=== PATIENT | female | born 1945 | race Caucasian/White ===

== ENCOUNTER 2022-08-16 22:37 | Inpatient (IN) | payer MEDICARE, SELFPAY ==
--- NOTE | ~2022-08-16 | XR_ITS ---
EXAMINATION: XR KNEE, LEFT CLINICAL INFORMATION: Left hip and knee pain COMPARISON: None available. TECHNIQUE: Two views of the left knee. FINDINGS: Alignment of the knee joint maintained. Small tricompartmental marginal osteophytes. No significant joint effusion. Comminuted proximal left femoral fracture as described dedicated report for the left hip. XR/XR knee LT 2V IMPRESSION: Intact left knee. Comminuted proximal left femoral fracture as described dedicated report for the left hip.
--- NOTE | ~2022-08-16 | FL_ITS ---
EXAMINATION: XR FLUOROSCOPY WITH IMAGES CLINICAL INFORMATION: A femoral IM nailing left. COMPARISON: None available. TECHNIQUE: Fluoroscopy Supervised By: Dr. Nikita Grant. Fluoroscopy Time: 1.0 minutes. Cumulative Dose: 31.6 mGy. DAP: 0.531 mGym2. Images: 5. FINDINGS: 5 images show a left intramedullary nail across the subtrochanteric femoral neck fracture. No periprosthetic fracture. FL/FL guidance in OR IMPRESSION: Technical assistance and equipment provided by the Department of Radiology during procedural fluoroscopy, as above. Please see procedure report for further details.
--- NOTE | ~2022-08-16 | XR_ITS ---
EXAMINATION: XR HIP, LEFT CLINICAL INFORMATION: Left hip pain. Evaluate for fracture. COMPARISON: None available. TECHNIQUE: Single AP view pelvis Two views of the left hip. FINDINGS: Acute comminuted subtrochanteric/reverse obliquity intertrochanteric spiral fracture of the proximal femoral diametaphysis, with apex medial and anterior angulation. There is a mildly displaced medial butterfly fragment distally. Pelvic ring intact. Severe bilateral hip arthrosis, worse on the left with near complete obliteration of the joint space, subchondral sclerosis and marginal osteophytes. XR/XR hip LT w PEL1V IMPRESSION: * Acute comminuted subtrochanteric/reverse obliquity intertrochanteric fracture of the proximal left femoral diametaphysis as described. * Severe left and moderate right hip arthrosis.
--- NOTE | ~2022-08-16 | XR_ITS ---
EXAMINATION: XR CHEST CLINICAL INFORMATION: Chest pain COMPARISON: None available. TECHNIQUE: Frontal view of the chest was obtained. FINDINGS: Normal symmetric lung volumes. No parenchymal consolidation. No pleural effusion. No pneumothorax. Cardiomediastinal silhouette and pulmonary vascularity are within normal limits. No acute osseous abnormalities. XR/XR chest 1V IMPRESSION: No acute findings.
[2022-08-16 22:42] VITALS: BP 127/74; BP 141/96; PULSE 80; PULSE 92; RESP 14; O2SAT 96; O2SAT 97; BMI 25.0
--- NOTE | 2022-08-16 22:53 | ECG_ITS ---
Test Reason : FALL Blood Pressure : / mmHG Vent. Rate : 089 BPM Atrial Rate : 089 BPM P-R Int : 176 ms QRS Dur : 102 ms QT Int : 380 ms P-R-T Axes : 041 -46 056 degrees QTc Int : 463 ms Poor data quality Sinus rhythm Leftward axis Borderline ECG No previous ECGs available Referred By: Nik Berg Electronically Signed By:William Knight
--- NOTE | 2022-08-16 22:55 | ED_ITS ---
HPI - Fall General Chief Complaint: Fall Stated Complaint: mechanical fall Time Seen by Provider: 08/16/22 22:41 Source: patient and EMS Mode of arrival: EMS Limitations: no limitations History of Present Illness HPI Narrative: 77-year-old female who was brought into emergency depart by ambulance for evaluation of a fall outside. Patient states that she was feeding her cats outside when 1 of the cats got between her legs causing her to trip and fall. She states that she landed on her left hip and is currently complaining of left hip pain. She was unable to stand. She states that it took her approximately 3 hours to crawl up her steps, to get back and her house and to call for help. Paramedics found the patient in a a sweatshirt and sweatpants which were wet, patient was feeling very cold. She was able to give a good history. She did not hit her head, she denied neck pain, she is complaining of severe pain in her left hip and states that she is having difficulty moving her left hip secondary to her pain. She denied being ill in any way prior to falling. She states she has severe left hip arthritis and also she has osteoporosis.. Related Data Allergies Allergy/AdvReac Type Severity Reaction Status Date / Time No Known Allergies Allergy Verified 08/16/22 22:50 Review of Systems Review of Systems: Yes all other systems are reviewed and are negative [facility] Past Medical History [facility] Narrative: Past medical history: Osteoporosis, left hip arthritis, thyroid adenoma, hypertension. Social history: She denies tobacco use. She occasionally drinks alcohol. She denies drinking alcohol this evening. She denies drug use. She lives alone. Social History Social History Advance Directives: No Physical Exam Vital Signs: Vital Signs: Last Vital Signs Temp 97.7 F 08/17/22 01:40 Pulse 86 08/17/22 01:40 Resp 14 08/17/22 01:40 BP 97/51 L 08/17/22 01:40 Pulse Ox 97 08/17/22 01:40 O2 Del Method 08/17/22 01:40 BMI result Body Mass Index 25.0 Const: Other: Awake, alert, female patient, answers all questions appropriately, patient has very cold skin, her skin is wet from being on side. Orientation/consciousness: oriented to person and oriented to place HEENT: Head: Yes normal to inspection, Yes normocephalic and Yes atraumatic Ears: external ears normal General nose exam: Normal external nose present Face and sinus: Yes normal facial exam Mouth: Normal oral and palatal mucosa present Throat: Yes posterior oropharynx normal Eyes: General: appearance normal, both eyes and all related structures Pupils: Equal, round and reactive pupils present Neck: Neck: Yes normal visual inspection, Yes no lymphadenopathy, Yes trachea midline and Yes supple Chest: Chest palpation & inspection: normal inspection of the chest and normal palpation of entire chest wall Resp: Effort & Inspection: normal respiratory effort and able to speak in complete sentences Auscultation: clear to auscultation bilaterally Cardio: Rate: regular rate Rhythm: regular rhythm Heart sounds: S1 normal heart sound present, S2 normal heart sound present and no murmurs GI: Inspection: Yes normal to inspection Palpation (GI): Soft to palpation, nontender and no guarding Auscultation: normal bowel sounds : General: Yes no CVA tenderness Back/Spine/Pelvis: Back: no CVA tenderness Skin: General skin exam: no rashes or lesions noted Neuro: General: oriented to person and oriented to place Cranial nerves: Yes CN's II-XII intact bilaterally and Yes Equal, round and reactive pupils present Cognition (Neuro): normal cognition Motor exam (neuro): 5/5 motor strength present throughout Extrem: Other: Patient has an externally rotated left lower extremity with significant pain with minimal movement of her left hip Psych: Appearance: grossly normal Speech and movement: Normal speech and movement present Affect: normal affect Attitude: cooperative Medications Administered Generic Name Dose Route Start Last Admin Trade Name Freq PRN Reason Stop Dose Admin Lactated Ringer's 1,000 mls @ 999 mls/hr 08/17/22 01:30 08/17/22 01:37 Lr IV 08/17/22 02:30 999 mls/hr .Q1H1M CARLITA Administration Discontinued Medications Generic Name Dose Route Start Last Admin Trade Name Freq PRN Reason Stop Dose Admin Sodium Chloride 1,000 mls @ 999 mls/hr 08/16/22 22:52 08/17/22 01:37 Ns IV 08/16/22 23:52 Infused .Q1H1M STA Infusion Morphine Sulfate 4 mg 08/16/22 22:53 08/16/22 23:35 Morphine Sulfate 4 Mg/Ml Cartridge IVPUSH 08/16/22 22:54 4 mg ONCE STA Administration Protocol Ondansetron HCl 4 mg 08/16/22 22:53 08/16/22 23:35 Ondansetron Hcl 4 Mg/2 Ml Vial IVPUSH 08/16/22 22:54 4 mg ONCE ONE Administration Medical Decision Making Medical Decision Making [facility] Narrative: 77-year-old female who presents emergency department for evaluation of trip and fall outdoors with a prolonged down time of 3 hours, with significant exposure to wet cold weather. Patient's rectal temperature was too low to register. The patient does have very cold skin and has significant pain with minimal movement of her left hip with externally rotated left lower extremity. I ordered a laboratory evaluation to include CBC, CMP, CK, lipase, PT/INR, PTT, lactic acid, ethanol level, urinalysis. Patient was ordered to be placed on a Tino Hugger for her hypothermia. She was also ordered to get warmed normal saline x1 L. I will obtain a chest x-ray and left hip and pelvis x-ray. Patient was ordered to get morphine 4 mg IV for her pain and Zofran 4 mg IV for nausea. 0228: I did discuss the patient's presentation over tiger text with the orthopedic physician assistant kitchen manager,Ellis Avalos. After this discussion I did re-evaluate the patient I do not see any break in the patient's skin to suggest that she has had a open/compound fracture. The physician assistant kitchen manager recommended a type and screen and keeping the patient NPO. I did repeat the patient's H&H and there was no significant change ( 11.9/36 to 11.8 and 35). I did discuss the patient's presentation over tiger text with the covering hospitalist, Dr. Childs and he did accept the patient to the hospital service. Differential Diagnosis Differential diagnosis includes was not limited to severe hypothermia secondary to exposure, rhabdomyolysis, left hip fracture, left pelvis fracture, aspiration pneumonia, dehydration. Consult Healthcare Provider Management of the patient was discussed with: Hospitalist (Dr. Childs) and Operations Supervisor 2Nd Shift (Orthopedic physician assistant kitchen manager, Ellis Avalos) Lab Data [facility] Lab Attestation statement: I reviewed the patient's lab results. 08/17/22 00:37 08/17/22 00:37 Labs: Lab Results 08/17/22 08/17/22 08/17/22 Range/Units 00:37 00:37 00:37 WBC 15.5 H (4.8-10.8) X10*3/uL RBC 3.93 L (4.20-5.50) X10*6/uL Hgb 11.9 L (12.0-16.0) g/dl Hct 36.0 L (37.0-47.0) % MCV 91.6 (80.0-98.0) fL MCH 30.3 (27.0-33.0) pg MCHC 33.1 (31.0-35.0) g/dl RDW 13.1 (11.0-16.0) % Plt Count 244 (160-400) X10*3/uL MPV 10.1 (9.4-12.3) fL Immature Gran % (Auto) 0.4 (0.0-0.4) % Neut % (Auto) 85.6 H (45-73) % Lymph % (Auto) 6.6 L (20-40) % [place] % (Auto) 7.2 (2-11) % Eos % (Auto) 0.1 (0-4) % Baso % (Auto) 0.1 (0-2) % Lymph # (Auto) 1.0 L (1.2-4.9) X10*3/uL [place] # (Auto) 1.1 (0.1-1.2) X10*3/uL Eos # (Auto) 0.0 (0.0-0.4) X10*3/uL Baso # (Auto) 0.0 (0.0-0.2) X10*3/uL Abs Immat Gran (auto) 0.06 H (0.00-0.03) X10*3/uL Absolute Neuts (auto) 13.3 H (2.0-8.3) x10*3/uL Absolute Nucleated RBC 0.000 (0.0-0.012) X10*3/uL Nucleated RBC % (auto) 0.0 (0.0-0.2) /100WBC PT 12.1 (10.0-13.1) SEC INR 1.1 (0.9-1.1) APTT 22.7 L (26.0-36.4) SEC Sodium 139 (135-145) mmol/L Potassium 4.5 (3.3-5.1) mmol/L Chloride 109 H (96-108) mmol/L Carbon Dioxide 24 (22-29) mmol/L Anion Gap 11 L (12-20) BUN 23 H (9-16) mg/dL Creatinine 0.71 (0.5-1.4) mg/dL Estim Creat Clear Calc 68.0 Estimated GFR > 60 Random Glucose 152 H (60-115) mg/dL Lactic Acid (0.5-2.0) mmol/L Calcium 8.3 L (8.4-10.2) mg/dL Total Bilirubin 0.6 (0.0-1.0) mg/dL AST 31 (5-31) U/L ALT 27 (0-31) U/L Alkaline Phosphatase 48 (39-117) U/L Total Creatine Kinase 1300 H (26-140) U/L Total Protein 5.1 L (6.5-8.0) g/dL Albumin 3.3 L (3.5-5.0) g/dL Lipase 8 (8-78) U/L Ethyl Alcohol mg/dL COVID-19 (MELISSA) (Negative) COVID-19 Clin Com Influenza Type A (KACI) (Negative) Influenza Type B (KACI) (Negative) Influenza A & B Note 08/17/22 08/17/22 08/17/22 Range/Units 00:37 00:37 00:37 WBC (4.8-10.8) X10*3/uL RBC (4.20-5.50) X10*6/uL Hgb (12.0-16.0) g/dl Hct (37.0-47.0) % MCV (80.0-98.0) fL MCH (27.0-33.0) pg MCHC (31.0-35.0) g/dl RDW (11.0-16.0) % Plt Count (160-400) X10*3/uL MPV (9.4-12.3) fL Immature Gran % (Auto) (0.0-0.4) % Neut % (Auto) (45-73) % Lymph % (Auto) (20-40) % [place] % (Auto) (2-11) % Eos % (Auto) (0-4) % Baso % (Auto) (0-2) % Lymph # (Auto) (1.2-4.9) X10*3/uL [place] # (Auto) (0.1-1.2) X10*3/uL Eos # (Auto) (0.0-0.4) X10*3/uL Baso # (Auto) (0.0-0.2) X10*3/uL Abs Immat Gran (auto) (0.00-0.03) X10*3/uL Absolute Neuts (auto) (2.0-8.3) x10*3/uL Absolute Nucleated RBC (0.0-0.012) X10*3/uL Nucleated RBC % (auto) (0.0-0.2) /100WBC PT (10.0-13.1) SEC INR (0.9-1.1) APTT (26.0-36.4) SEC Sodium (135-145) mmol/L Potassium (3.3-5.1) mmol/L Chloride (96-108) mmol/L Carbon Dioxide (22-29) mmol/L Anion Gap (12-20) BUN (9-16) mg/dL Creatinine (0.5-1.4) mg/dL Estim Creat Clear Calc Estimated GFR Random Glucose (60-115) mg/dL Lactic Acid 2.0 (0.5-2.0) mmol/L Calcium (8.4-10.2) mg/dL Total Bilirubin (0.0-1.0) mg/dL AST (5-31) U/L ALT (0-31) U/L Alkaline Phosphatase (39-117) U/L Total Creatine Kinase (26-140) U/L Total Protein (6.5-8.0) g/dL Albumin (3.5-5.0) g/dL Lipase (8-78) U/L Ethyl Alcohol mg/dL COVID-19 (MELISSA) Negative (Negative) COVID-19 Clin Com See Note Influenza Type A (KACI) Negative (Negative) Influenza Type B (KACI) Negative (Negative) Influenza A & B Note See Note 08/17/22 08/17/22 Range/Units 00:37 02:08 WBC (4.8-10.8) X10*3/uL RBC (4.20-5.50) X10*6/uL Hgb 11.8 L (12.0-16.0) g/dl Hct 35.1 L (37.0-47.0) % MCV (80.0-98.0) fL MCH (27.0-33.0) pg MCHC (31.0-35.0) g/dl RDW (11.0-16.0) % Plt Count (160-400) X10*3/uL MPV (9.4-12.3) fL Immature Gran % (Auto) (0.0-0.4) % Neut % (Auto) (45-73) % Lymph % (Auto) (20-40) % [place] % (Auto) (2-11) % Eos % (Auto) (0-4) % Baso % (Auto) (0-2) % Lymph # (Auto) (1.2-4.9) X10*3/uL [place] # (Auto) (0.1-1.2) X10*3/uL Eos # (Auto) (0.0-0.4) X10*3/uL Baso # (Auto) (0.0-0.2) X10*3/uL Abs Immat Gran (auto) (0.00-0.03) X10*3/uL Absolute Neuts (auto) (2.0-8.3) x10*3/uL Absolute Nucleated RBC (0.0-0.012) X10*3/uL Nucleated RBC % (auto) (0.0-0.2) /100WBC PT (10.0-13.1) SEC INR (0.9-1.1) APTT (26.0-36.4) SEC Sodium (135-145) mmol/L Potassium (3.3-5.1) mmol/L Chloride (96-108) mmol/L Carbon Dioxide (22-29) mmol/L Anion Gap (12-20) BUN (9-16) mg/dL Creatinine (0.5-1.4) mg/dL Estim Creat Clear Calc Estimated GFR Random Glucose (60-115) mg/dL Lactic Acid (0.5-2.0) mmol/L Calcium (8.4-10.2) mg/dL Total Bilirubin (0.0-1.0) mg/dL AST (5-31) U/L ALT (0-31) U/L Alkaline Phosphatase (39-117) U/L Total Creatine Kinase (26-140) U/L Total Protein (6.5-8.0) g/dL Albumin (3.5-5.0) g/dL Lipase (8-78) U/L Ethyl Alcohol < 10 mg/dL COVID-19 (MELISSA) (Negative) COVID-19 Clin Com Influenza Type A (KACI) (Negative) Influenza Type B (KACI) (Negative) Influenza A & B Note Independent Interpretation I performed an independent interpretation of an: EKG and Plain X-Ray Interpretation: Twelve EKG done at 23:10 interpreted by me as follows: Normal sinus rhythm rate of 89, normal AK interval, prolonged QRS of 102 milliseconds, prolonged QTC of 498 milliseconds, no significant ST segment elevation or depression however there is artifact in V1 secondary to the patient's hypothermic tremor. My independent interpretation of the patient's hip, pelvis and left femur fracture is as follows: Displaced spiral fracture of the proximal 3rd of the left femur Radiology Impression Discussion of test interpretation with radiology: I have reviewed the radiologist's reading. Radiologist Impression: XR hip LT w PEL1V IMPRESSION: * Acute comminuted subtrochanteric/reverse obliquity intertrochanteric fracture of the proximal left femoral diametaphysis as described. * Severe left and moderate right hip arthrosis. Dictated By:Joshua Bourne MDSigned By:<Electronically signed by Joshua Bourne MD in [place]>08/17/22 0148 XR knee LT 2V IMPRESSION: Intact left knee. Comminuted proximal left femoral fracture as described dedicated report for the left hip. Dictated By:Joshua Bourne MDSigned By:<Electronically signed by Joshua Bourne MD in [place]>08/17/22 0150
--- NOTE | 2022-08-16 23:05 | PC.NURSE ---
Pt placed on Bearhugger and IV fluids being warmed with administration. Rectal probed inserted to monitor pt temp.
[2022-08-16 23:07] VITALS: BP 125/98; PULSE 88; RESP 20; TEMP 34.3; O2SAT 97
[2022-08-16 23:35] VITALS: RESP 16
[2022-08-16] MEDS: ondansetron HCL 4 MG/2 ML VIAL IVPUSH (23:35)
[2022-08-16] MEDS: 0.9 % Sodium Chloride 1,000 ML 999 ML IV (23:35)
[2022-08-16] MEDS: Morphine Sulfate 4 MG/ML CARTRIDGE IVPUSH (23:35)
[2022-08-17] VITALS (16 sets, daily range): BP systolic 97–146; BP diastolic 51–80; PULSE 86–104; RESP 9–23; TEMP 35.4–37.8; O2SAT 95–100; BMI 25.4
--- NOTE | 2022-08-17 | ECG_ITS ---
Test Reason : preop Blood Pressure : / mmHG Vent. Rate : 100 BPM Atrial Rate : 100 BPM P-R Int : 140 ms QRS Dur : 084 ms QT Int : 362 ms P-R-T Axes : 070 -29 050 degrees QTc Int : 466 ms Normal sinus rhythm Normal ECG When compared with ECG of 16-AUG-2022 23:10, No significant changes seen Referred By: Asha Finch Electronically Signed By:William Knight
[2022-08-17 00:44] LABS: MANUAL DIFF FLAG NO
[2022-08-17 00:47] LABS: Basophils Percent Auto 0.1 % (0-2); Eosinophils Percent Auto 0.1 % (0-4); Hemoglobin 11.9 g/dl (12.0-16.0); Imm Gran Abs Auto 0.06 X10*3/uL (0.00-0.03); Imm Gran Pct Auto 0.4 % (0.0-0.4); Lymphocytes Percent Auto 6.6 % (20-40); Mean Corpuscular HGB Conc 33.1 g/dl (31.0-35.0); Mean Corpuscular Hemoglobin 30.3 pg (27.0-33.0); Mean Corpuscular Volume 91.6 fL (80.0-98.0); Mean Platelet Volume 10.1 fL (9.4-12.3); Monocytes Absolute Auto 1.1 X10*3/uL (0.1-1.2); Monocytes Percent Auto 7.2 % (2-11); Neutrophils Absolute Auto 13.3 x10*3/uL (2.0-8.3); Neutrophils Percent Auto 85.6 % (45-73); Platelet Count 244 X10*3/uL (160-400); Red Blood Count 3.93 X10*6/uL (4.20-5.50); Red Cell Distribution Width 13.1 % (11.0-16.0); White Blood Count 15.5 X10*3/uL (4.8-10.8)
[2022-08-17 00:55] LABS: INTERNATIONAL NORM RATIO 1.1 (0.9-1.1); Prothrombin Time 12.1 SEC (10.0-13.1)
[2022-08-17 00:58] LABS: Ethanol < 10 mg/dL; Partial Thromboplastin Time 22.7 SEC (26.0-36.4)
[2022-08-17 01:01] LABS: COVID-19 Test Negative (Negative); IDNOW Serial# 55D5AD1C; IDNOW Serial# 9DB6401D; Influenza A Negative (Negative); Influenza B2 Negative (Negative)
[2022-08-17 01:02] LABS: Alanine Aminotransferase 27 U/L (0-31); Albumin Level 3.3 g/dL (3.5-5.0); Alkaline Phosphatase 48 U/L (39-117); Anion Gap 11 (12-20); Aspartate Amino Transferase 31 U/L (5-31); Bilirubin Total 0.6 mg/dL (0.0-1.0); Blood Urea Nitrogen 23 mg/dL (9-16); Calcium 8.3 mg/dL (8.4-10.2); Carbon Dioxide 24 mmol/L (22-29); Chloride 109 mmol/L (96-108); Estimated Glomerular Filt Rate > 60; Glucose Random 152 mg/dL (60-115); Lipase 8 U/L (8-78); Potassium 4.5 mmol/L (3.3-5.1); Sodium 139 mmol/L (135-145); Total Protein 5.1 g/dL (6.5-8.0)
[2022-08-17] MEDS: Lactated Ringers 1,000 ML 999 ML IV (01:37)
[2022-08-17 02:16] LABS: Hematocrit 35.1 % (37.0-47.0); Hemoglobin 11.8 g/dl (12.0-16.0)
--- NOTE | 2022-08-17 02:23 | PM.IMHP ---
History of Present Illness Date of Service: 08/17/22 Chief Complaint: Fall This is a 77-year-old female with pertinent history of essential hypertension, osteoporosis who presents to the emergency department evaluation after a fall. Patient states she was feeding her cats and 1 of the cats caught in between her legs and she fell. No loss of consciousness, no rhythmic jerking movement of extremities, no tongue bite, no dizziness or lightheadedness prior to the fall. Patient fell on her left hip and states her left hip has been hurting since. Patient states that she was unable to get up after the fall and she was lying on the floor for about 3 hours. She called EMS who able to pick her and found her a pool of sweat. Patient denies fever, chills, chest discomfort, palpitations, shortness of breath, abdominal pain, changes in urinary or bowel habits. In the emergency department, imaging with left femoral fracture Review of Systems Constitutional: Constitutional: Reports no additional constitutional complaints Cardiovascular: Cardiovascular: Reports no additional cardiovascular complaints Respiratory: Respiratory: Reports no additional respiratory complaints Gastrointestinal: Gastrointestinal: Reports no additional gastrointestinal complaints Genitourinary: Genitourinary: Reports no additional female genitourinary complaints Musculoskeletal: Musculoskeletal: Reports arthralgias [facility] Medical History Essential hypertension Osteoporosis Pertinent family history: not significant due to age Social History Household Members: None Housing: House Do you presently have visiting nurse or other home services: No Alcohol intake: current Alcohol intake frequency: a few times a month Alcohol type: wine Patient Tobacco Use Status: Never used Tobacco Smoked in Last 30 Days: No e-Cigarette/Vaping Use: Never Used Second Hand Smoke Exposure: No Use of substances other than those prescribed or required for medical reasons: No Currently Displaying Signs/Symptoms of Drug Intoxication Withdrawal: No Any prior treatment program specific to substance use: No Have you been hit, kicked, punched, or otherwise hurt by someone within the past year? If so, by whom?: No Do you feel safe in your current relationship?: No Current Relationship Is there a partner from a previous relationship who is making you feel unsafe now?: No Are you made to feel afraid or neglected: No Advance Directives: No Advance Directives on File: No Do you have thoughts of harming others: None Do you have a plan to hurt others: No Plan Recently lost weight without trying: No Eating poorly because of decreased appetite: No Nutrition Risks: No Nutritional Risk Patient : No : No Poor oral hygiene: No Meds Allergies Allergy/AdvReac Type Severity Reaction Status Date / Time No Known Allergies Allergy Verified 08/16/22 22:50 Active Medications: Current Medications Acetaminophen (Acetaminophen 325 Mg Tablet) 650 mg PO Q6H PRN PRN Reason: Pain, Mild (Pain Scale 1-3) Acetaminophen (Acetaminophen Supp 650 Mg Supp.Rect) 650 mg PA Q6H PRN PRN Reason: Pain, Mild (Pain Scale 1-3) Lactated Ringer's (Lr) 1,000 mls @ 999 mls/hr IV .Q1H1M [facility] Stop: 08/17/22 02:30 Last Admin: 08/17/22 01:37 Dose: 999 mls/hr Sodium Chloride (Ns) 1,000 mls @ 100 mls/hr IVCONT .Q10H [facility] Melatonin (Melatonin 3 Mg Tablet) 6 mg PO BEDTIME PRN PRN Reason: Insomnia Morphine Sulfate (Morphine Sulfate 4 Mg/Ml Cartridge) 4 mg IVPUSH Q4H PRN; Protocol PRN Reason: Pain, Severe (Pain Scale 7-10) Ondansetron HCl (Ondansetron Hcl 4 Mg/2 Ml Vial) 4 mg IVPUSH Q8H PRN PRN Reason: Nausea and Vomiting Sodium Chloride (0.9 % Sodium Chloride Flush 3 Ml Syringe) 3 ml IVFLUSH QSHIFT [facility] Physical Exam Vital Signs and Narrative: Vital Signs: Last Vital Signs Temp 97.7 F 08/17/22 01:40 Pulse 86 08/17/22 01:40 Resp 14 08/17/22 01:40 BP 97/51 L 08/17/22 01:40 Pulse Ox 97 08/17/22 01:40 O2 Del Method 08/17/22 01:40 BMI result Body Mass Index 25.0 Elderly female lying in bed in no distress Neck supple, no JVD Regular rate and rhythm, S1-S2 heard Regular breath sounds bilaterally, no wheezing or crackles appreciated Abdomen soft nontender, no guarding, no rigidity Patient is awake, alert and oriented to self, place, time and person ; no focal motor deficit Msk: limited motion of left hip due to pain Psych: Normal mood No pedal edema Results Labs 08/17/22 02:08 08/17/22 00:37 Labs: Laboratory Results - last 24 hr 08/17/22 08/17/22 08/17/22 00:37 00:37 00:37 MCV 91.6 MCH 30.3 MCHC 33.1 RDW 13.1 Plt Count 244 MPV 10.1 Immature Gran % (Auto) 0.4 Neut % (Auto) 85.6 H Lymph % (Auto) 6.6 L [place] % (Auto) 7.2 Eos % (Auto) 0.1 Baso % (Auto) 0.1 Lymph # (Auto) 1.0 L [place] # (Auto) 1.1 Eos # (Auto) 0.0 Baso # (Auto) 0.0 Abs Immat Gran (auto) 0.06 H Absolute Neuts (auto) 13.3 H Absolute Nucleated RBC 0.000 Nucleated RBC % (auto) 0.0 PT 12.1 INR 1.1 APTT 22.7 L Anion Gap 11 L Estim Creat Clear Calc 68.0 Estimated GFR > 60 Random Glucose 152 H Lactic Acid Calcium 8.3 L Total Bilirubin 0.6 AST 31 ALT 27 Alkaline Phosphatase 48 Total Creatine Kinase 1300 H Total Protein 5.1 L Albumin 3.3 L Lipase 8 Ethyl Alcohol COVID-19 (MELISSA) COVID-19 Clin Com Influenza Type A (KACI) Influenza Type B (KACI) Influenza A & B Note 08/17/22 08/17/22 08/17/22 00:37 00:37 00:37 MCV MCH MCHC RDW Plt Count MPV Immature Gran % (Auto) Neut % (Auto) Lymph % (Auto) [place] % (Auto) Eos % (Auto) Baso % (Auto) Lymph # (Auto) [place] # (Auto) Eos # (Auto) Baso # (Auto) Abs Immat Gran (auto) Absolute Neuts (auto) Absolute Nucleated RBC Nucleated RBC % (auto) PT INR APTT Anion Gap Estim Creat Clear Calc Estimated GFR Random Glucose Lactic Acid 2.0 Calcium Total Bilirubin AST ALT Alkaline Phosphatase Total Creatine Kinase Total Protein Albumin Lipase Ethyl Alcohol COVID-19 (MELISSA) Negative COVID-19 Clin Com See Note Influenza Type A (KACI) Negative Influenza Type B (KACI) Negative Influenza A & B Note See Note 08/17/22 00:37 MCV MCH MCHC RDW Plt Count MPV Immature Gran % (Auto) Neut % (Auto) Lymph % (Auto) [place] % (Auto) Eos % (Auto) Baso % (Auto) Lymph # (Auto) [place] # (Auto) Eos # (Auto) Baso # (Auto) Abs Immat Gran (auto) Absolute Neuts (auto) Absolute Nucleated RBC Nucleated RBC % (auto) PT INR APTT Anion Gap Estim Creat Clear Calc Estimated GFR Random Glucose Lactic Acid Calcium Total Bilirubin AST ALT Alkaline Phosphatase Total Creatine Kinase Total Protein Albumin Lipase Ethyl Alcohol < 10 COVID-19 (MELISSA) COVID-19 Clin Com Influenza Type A (KACI) Influenza Type B (KACI) Influenza A & B Note Imaging Radiologist's Impressions: Impressions Chest X-Ray 08/17/22 01:27 IMPRESSION: No acute findings. Hip/Pelvis X-Ray 08/17/22 01:27 IMPRESSION: * Acute comminuted subtrochanteric/reverse obliquity intertrochanteric fracture of the proximal left femoral diametaphysis as described. * Severe left and moderate right hip arthrosis. Knee X-Ray 08/17/22 01:29 IMPRESSION: Intact left knee. Comminuted proximal left femoral fracture as described dedicated report for the left hip. Assessment and Plan (1) Displaced spiral fracture of shaft of left femur, initial encounter for closed fracture: Status: Acute Plan This is a 77-year-old female with pertinent history of essential hypertension, osteoporosis who presents to the emergency department evaluation after a fall. #. acute fracture of proximal left femoral diametaphysis due to mechanical fall: Will admit patient and initiate IV morphine p.r.n. for pain control. orthopedic surgery consulted from the ER, appreciate assistance. Will keep patient NPO #. rhabdomyolysis: Resuscitating with IV crystalloids. Repeat CK in a.m. #. essential hypertension: Hold TINO-inhibitor prior to surgery to prevent postop hypotension #. reactive leukocytosis med rec pending DVT prophylaxis: Defer Lovenox until orthopedic surgery evaluation NPO Full code Admit as inpatient for possible orthopedic procedure Time Spent With Patient Time: Total time managing care of this patient today ____ minutes. Quality Stroke Does the patient have a stroke diagnosis?: No VTE Prior VTE?: No VTE Risk Level:: Medical - moderate - high VTE Device Contraindication: Treatment Not Indicated VTE Drug Contraindication: Treatment Not Indicated
--- NOTE | 2022-08-17 03:27 | PC.NURSE ---
Pt's rectal temp reading 99.0. Bearhugger removed from pt. Pt resting comfortably in bed. Pt stated that she does not have much pain when she is laying still.
[2022-08-17] MEDS: 0.9 % Sodium Chloride 1,000 ML 100 ML IVCONT ×3 (03:54→20:40)
--- NOTE | 2022-08-17 04:49 | PC.NURSE ---
Pt asked how she could use the bathroom if she needed to void. Pt has not voided since her arrival to the ED. Pt stated that she did not need to void at this time. Bladder scan reading 537 mL.
[2022-08-17] MEDS: Morphine Sulfate 4 MG/ML CARTRIDGE IVPUSH ×2 (05:21→18:31)
--- NOTE | 2022-08-17 06:18 | PC.NURSE ---
PATIENT ADMITTED VIA STRETCHER FROM ED WITH DX: LEFT HIP FX. PT IS NPO AND PRE-OP STATUS. A/O X3, LING RICH CLEAR, LEFT LEFT SHORTER AND EXTERNALLY ROTATED. IVF ORDERED TO #20 AT LEFT AC. CALL [facility] AND BED CONTROLS EXPLAINED TO PT, ALSO HFR AND BED ALARM USE. PUREWICK PLACED PT IS ON BEDREST, VSS, MEDICATED FOR PAIN AFTER STRETCHER TRANSFER AND GETTING SETTLED INTO BED. MACHINE HAMPER MAKER APPLIED WITH RHYTHM NSR. WILL CONT TO MONITOR.
[2022-08-17 06:33] LABS: MANUAL DIFF FLAG NO
[2022-08-17 06:38] LABS: Basophils Percent Auto 0.1 % (0-2); Hematocrit 32.9 % (37.0-47.0); Imm Gran Abs Auto 0.06 X10*3/uL (0.00-0.03); Imm Gran Pct Auto 0.5 % (0.0-0.4); Lymphocytes Absolute Auto 0.6 X10*3/uL (1.2-4.9); Lymphocytes Percent Auto 5.3 % (20-40); Mean Corpuscular HGB Conc 33.4 g/dl (31.0-35.0); Mean Corpuscular Hemoglobin 30.2 pg (27.0-33.0); Mean Corpuscular Volume 90.4 fL (80.0-98.0); Monocytes Percent Auto 8.4 % (2-11); Neutrophils Absolute Auto 10.4 x10*3/uL (2.0-8.3); Neutrophils Percent Auto 85.7 % (45-73); Platelet Count 235 X10*3/uL (160-400); Red Blood Count 3.64 X10*6/uL (4.20-5.50); Red Cell Distribution Width 13.2 % (11.0-16.0); White Blood Count 12.2 X10*3/uL (4.8-10.8)
[2022-08-17 07:03] LABS: Anion Gap 10 (12-20); Blood Urea Nitrogen 23 mg/dL (9-16); Calcium 8.4 mg/dL (8.4-10.2); Carbon Dioxide 23 mmol/L (22-29); Chloride 108 mmol/L (96-108); Estimated Glomerular Filt Rate > 60; Glucose Random 138 mg/dL (60-115); Potassium 4.2 mmol/L (3.3-5.1); Sodium 137 mmol/L (135-145)
[2022-08-17 08:33] LABS: Appearance Urine Turbid; Color Urine Yellow; Glucose Urine UA 100 mg/dL (Negative); Leukocyte Esterase Urine Negative (Negative); Nitrite Urine Negative (Negative); PH 5.5 (5.0-9.0); UMIC TRIGGER UACC YES; Urine Blood Negative (Negative); Urine Ketones 15 mg/dL (Negative); Urine Protein 30 (1+) mg/dL (Neg-Trace)
--- NOTE | 2022-08-17 08:57 | PHA.MEDREC ---
Pharmacy Consult ? Medication Reconciliation Pharmacy has completed the medication reconciliation. Pt remembers names of medications she takes, but admits to being better at taking her lisinopril than her vitamins. She says she takes her vitamins if she remembers .
[2022-08-17 08:59] LABS: Bacteria Urine None Seen (None Seen); Calcium Oxalate Crystals Urine Present; RBC Urine 0-2 /HPF (0-2); Squamous Epithelial Cell Urine 0-2 /HPF (0-2); WBC Urine 0-5 /HPF (0-5)
--- NOTE | 2022-08-17 09:10 | P.CONOP_ITS ---
History of Present Illness HPI Consult date: 08/17/22 Chief complaint: Fall Narrative: 77-year-old female with pertinent history of essential hypertension, osteoporosis admitted to the medical service after a fall resulting in a left femur fracture.? Patient states she was feeding her cats and 1 of the cats caught in between her legs and she fell.? No loss of consciousness. no rhythmic jerking movement of extremities, no tongue bite, no dizziness or lightheadedness prior to the fall. Patient states that she was unable to get up after the fall and she was lying on the floor for about 3 hours.? She was hypotermic when brought to the ED, she was given warming blankets and Fluids. Orthopedics was consulted for further recommendations. She states she lives alone, she has 8 stairs to get into the house. once she is in the house, it is all one level. She does not use an assistive device for ambulation. Review of Systems Review of Systems: per [facility] Past Medical History Medical History Essential hypertension Osteoporosis Social History Social History Household Members: None Housing: House Do you presently have visiting nurse or other home services: No Alcohol intake: current Alcohol intake frequency: a few times a month Alcohol type: wine Patient Tobacco Use Status: Never used Tobacco Smoked in Last 30 Days: No e-Cigarette/Vaping Use: Never Used Second Hand Smoke Exposure: No Use of substances other than those prescribed or required for medical reasons: No Currently Displaying Signs/Symptoms of Drug Intoxication Withdrawal: No Any prior treatment program specific to substance use: No Have you been hit, kicked, punched, or otherwise hurt by someone within the past year? If so, by whom?: No Do you feel safe in your current relationship?: No Current Relationship Is there a partner from a previous relationship who is making you feel unsafe now?: No Are you made to feel afraid or neglected: No Advance Directives: No Advance Directives on File: No Do you have thoughts of harming others: None Do you have a plan to hurt others: No Plan Recently lost weight without trying: No Eating poorly because of decreased appetite: No Nutrition Risks: No Nutritional Risk Patient : No : No Poor oral hygiene: No service: No Current occupational status: employed Meds Allergies Allergy/AdvReac Type Severity Reaction Status Date / Time No Known Allergies Allergy Verified 08/16/22 22:50 Active Medications: Current Medications Acetaminophen (Acetaminophen 325 Mg Tablet) 650 mg PO Q6H PRN PRN Reason: Pain, Mild (Pain Scale 1-3) Acetaminophen (Acetaminophen Supp 650 Mg Supp.Rect) 650 mg LA Q6H PRN PRN Reason: Pain, Mild (Pain Scale 1-3) Sodium Chloride (Ns) 1,000 mls @ 100 mls/hr IVCONT .Q10H [facility] Last Admin: 08/17/22 03:54 Dose: 100 mls/hr Melatonin (Melatonin 3 Mg Tablet) 6 mg PO BEDTIME PRN PRN Reason: Insomnia Morphine Sulfate (Morphine Sulfate 4 Mg/Ml Cartridge) 4 mg IVPUSH Q4H PRN; Protocol PRN Reason: Pain, Severe (Pain Scale 7-10) Last Admin: 08/17/22 05:21 Dose: 4 mg Ondansetron HCl (Ondansetron Hcl 4 Mg/2 Ml Vial) 4 mg IVPUSH Q8H PRN PRN Reason: Nausea and Vomiting Pharmacy Consult (Consult Rx Perform Med Rec) 1 each MISCELLANE ONCE PRN PRN Reason: Consult order Pharmacy Consult (Consult Rx Perform Med Rec) 1 each MISCELLANE ONCE PRN PRN Reason: Consult order Sodium Chloride (0.9 % Sodium Chloride Flush 3 Ml Syringe) [facility] Medic[facility] Medication Instructions Recorded Confirmed Last Taken Type alendronate 70 mg tablet 1 tab PO RODAS 08/17/22 08/17/22 08/13/22 History calcium carbonate 600 mg-vitamin 1 tab PO DAILY 08/17/22 08/17/22 Unknown History D3 5 mcg (200 unit) tablet lisinopril 10 mg tablet 1 tab PO DAILY 08/17/22 08/17/22 08/16/22 History multivitamin (Daily Multi-Vitamin 1 tab PO DAILY 08/17/22 08/17/22 Unknown History tablet) Physical Exam Vital Signs: Vital Signs: Last Vital Signs Temp 98.0 F 08/17/22 07:36 Pulse 97 08/17/22 07:36 Resp 16 08/17/22 07:36 BP 117/64 08/17/22 07:36 Pulse Ox 97 08/17/22 07:36 O2 Del Method 08/17/22 07:36 BMI result Body Mass Index 25.4 Const: General: cooperative and no acute distress Orientation/consciousness: patient oriented x3 Resp: Effort & Inspection: normal respiratory effort and able to speak in complete sentences Cardio: Peripheral pulses: Peripheral pulses 2+ throughout Neuro: General: patient oriented x3 Extrem: Other: Left hip normal to inspection. No open wounds. Pain with log roll. Unable to SLR. NVI. Results Labs 08/17/22 06:29 08/17/22 06:29 Labs: Abnormal lab results 08/17/22 08/17/22 08/17/22 Range/Units 00:37 00:37 00:37 WBC 15.5 H (4.8-10.8) X10*3/uL RBC 3.93 L (4.20-5.50) X10*6/uL Hgb 11.9 L (12.0-16.0) g/dl Hct 36.0 L (37.0-47.0) % Immature Gran % (Auto) (0.0-0.4) % Neut % (Auto) 85.6 H (45-73) % Lymph % (Auto) 6.6 L (20-40) % Lymph # (Auto) 1.0 L (1.2-4.9) X10*3/uL Abs Immat Gran (auto) 0.06 H (0.00-0.03) X10*3/uL Absolute Neuts (auto) 13.3 H (2.0-8.3) x10*3/uL APTT 22.7 L (26.0-36.4) SEC Chloride 109 H (96-108) mmol/L Anion Gap 11 L (12-20) BUN 23 H (9-16) mg/dL Random Glucose 152 H (60-115) mg/dL Calcium 8.3 L (8.4-10.2) mg/dL Total Creatine Kinase 1300 H (26-140) U/L Total Protein 5.1 L (6.5-8.0) g/dL Albumin 3.3 L (3.5-5.0) g/dL Urine Protein (Neg-Trace) mg/dL Urine Glucose (UA) (Negative) mg/dL 08/17/22 08/17/2223 Range/Units 02:08 06:29 06:29 WBC 12.2 H (4.8-10.8) X10*3/uL RBC 3.64 L (4.20-5.50) X10*6/uL Hgb 11.8 L 11.0 L (12.0-16.0) g/dl Hct 35.1 L 32.9 L (37.0-47.0) % Immature Gran % (Auto) 0.5 H (0.0-0.4) % Neut % (Auto) 85.7 H (45-73) % Lymph % (Auto) 5.3 L (20-40) % Lymph # (Auto) 0.6 L (1.2-4.9) X10*3/uL Abs Immat Gran (auto) 0.06 H (0.00-0.03) X10*3/uL Absolute Neuts (auto) 10.4 H (2.0-8.3) x10*3/uL APTT (26.0-36.4) SEC Chloride (96-108) mmol/L Anion Gap 10 L (12-20) BUN 23 H (9-16) mg/dL Random Glucose 138 H (60-115) mg/dL Calcium (8.4-10.2) mg/dL Total Creatine Kinase (26-140) U/L Total Protein (6.5-8.0) g/dL Albumin (3.5-5.0) g/dL Urine Protein (Neg-Trace) mg/dL Urine Glucose (UA) (Negative) mg/dL 08/17/22 08/17/22 Range/Units 06:29 08:09 WBC (4.8-10.8) X10*3/uL RBC (4.20-5.50) X10*6/uL Hgb (12.0-16.0) g/dl Hct (37.0-47.0) % Immature Gran % (Auto) (0.0-0.4) % Neut % (Auto) (45-73) % Lymph % (Auto) (20-40) % Lymph # (Auto) (1.2-4.9) X10*3/uL Abs Immat Gran (auto) (0.00-0.03) X10*3/uL Absolute Neuts (auto) (2.0-8.3) x10*3/uL APTT (26.0-36.4) SEC Chloride (96-108) mmol/L Anion Gap (12-20) BUN (9-16) mg/dL Random Glucose (60-115) mg/dL Calcium (8.4-10.2) mg/dL Total Creatine Kinase 2007 H (26-140) U/L Total Protein (6.5-8.0) g/dL Albumin (3.5-5.0) g/dL Urine Protein 30 (1+) H (Neg-Trace) mg/dL Urine Glucose (UA) 100 H (Negative) mg/dL H & H 08/17/22 08/17/22 08/17/22 Range/Units 00:37 02:08 06:29 Hgb 11.9 L 11.8 L 11.0 L (12.0-16.0) g/dl Hct 36.0 L 35.1 L 32.9 L (37.0-47.0) % Coagulation 08/17/22 Range/Units 00:37 INR 1.1 (0.9-1.1) All other labs normal. Diagnostic results Hip x-ray: image reviewed (* Acute comminuted subtrochanteric/reverse obliquity intertrochanteric fracture of the proximal left femoral diametaphysis as described. * Severe left and moderate right hip arthrosis.) Assessment and Plan (1) Displaced spiral fracture of shaft of left femur, initial encounter for closed fracture: Status: Acute Plan I discussed the case with Dr Grant and explained the extent of the injury to the patient and options available which include surgical intervention. I explained the procedure in detail along with the length of recovery and rehab course. I explained the risk, benefits and alternatives. Risk including, but not limited to infection, blood clots, bleeding, non union or malunion and nerve/tissue damage to surrounding areas. I answered all their questions and wi th their understanding they have consented to move forward with Operative Fixation of the left hip. The patient will be T&S, med clearance obtained and NPO after midnight. Time Spent With Patient Time: Total time managing care of this patient today ____ minutes. Procedures Date of Service Date of Service: 08/17/22
--- NOTE | 2022-08-17 10:33 | HO.PM.IMPN ---
Subjective Subjective Date of Service: 08/17/22 Interval History: seen and examined this morning follow up for left leg fracture pt reports mechanical fall, no LOC no sob/chest pain Review of Systems Review of Systems: Yes all other systems are reviewed and are negative Constitutional Constitutional: Denies chills and Denies fever(s) ENT Ears, Nose, Mouth, and Throat: Denies dizziness Cardiovascular Cardiovascular: Denies chest pain, Denies palpitations and Denies dyspnea Respiratory Respiratory: Denies cough and Denies dyspnea Neurologic Neurologic: Denies dizziness Endocrine Endocrine: Denies palpitations Physical Exam Vital Signs: Vital Signs: Last Vital Signs Temp 98.0 F 08/17/22 07:36 Pulse 97 08/17/22 07:36 Resp 16 08/17/22 07:36 BP 117/64 08/17/22 07:36 Pulse Ox 97 08/17/22 07:36 O2 Del Method 08/17/22 07:36 BMI result Body Mass Index 25.4 Const: General: cooperative, no acute distress, alert and awake Nutritional Appearance: average body habitus Orientation/consciousness: patient oriented x3 Resp: Effort & Inspection: normal respiratory effort and able to speak in complete sentences Auscultation: clear to auscultation bilaterally Cardio: Rate: regular rate Heart sounds: S1 normal heart sound present and S2 normal heart sound present GI: Inspection: No distended Palpation (GI): Soft to palpation Neuro: Other: grossly non-focal General: patient oriented x3 Extrem: Other: LLE ER General: Yes no pedal edema Objective Data Active Medications Acetaminophen (Acetaminophen 325 Mg Tablet) 650 mg PO Q6H PRN PRN Reason: Pain, Mild (Pain Scale 1-3) Acetaminophen (Acetaminophen Supp 650 Mg Supp.Rect) 650 mg OR Q6H PRN PRN Reason: Pain, Mild (Pain Scale 1-3) Sodium Chloride (Ns) 1,000 mls @ 100 mls/hr IVCONT .Q10H [facility] Last Admin: 08/17/22 03:54 Dose: 100 mls/hr Documented By: MARTINE Melatonin (Melatonin 3 Mg Tablet) 6 mg PO BEDTIME PRN PRN Reason: Insomnia Morphine Sulfate (Morphine Sulfate 4 Mg/Ml Cartridge) 4 mg IVPUSH Q4H PRN; Protocol PRN Reason: Pain, Severe (Pain Scale 7-10) Last Admin: 08/17/22 05:21 Dose: 4 mg Documented By: MICKEY Ondansetron HCl (Ondansetron Hcl 4 Mg/2 Ml Vial) 4 mg IVPUSH Q8H PRN PRN Reason: Nausea and Vomiting Pharmacy Consult (Consult Rx Perform Med Rec) 1 each MISCELLANE ONCE PRN PRN Reason: Consult order Pharmacy Consult (Consult Rx Perform Med Rec) 1 each MISCELLANE ONCE PRN PRN Reason: Consult order Sodium Chloride (0.9 % Sodium Chloride Flush 3 Ml Syringe) 3 ml IVFLUSH QSHIFT [facility] Last Admin: 08/17/22 09:23 Dose: Not Given Documented By: JOSE RAFAEL Non-Admin Reason: IV Running Labs 08/17/22 06:29 08/17/22 06:29 Labs: Laboratory Results - last 24 hr 08/17/22 08/17/22 08/17/22 00:37 00:37 00:37 MCV 91.6 MCH 30.3 MCHC 33.1 RDW 13.1 Plt Count 244 MPV 10.1 Immature Gran % (Auto) 0.4 Neut % (Auto) 85.6 H Lymph % (Auto) 6.6 L [place] % (Auto) 7.2 Eos % (Auto) 0.1 Baso % (Auto) 0.1 Lymph # (Auto) 1.0 L [place] # (Auto) 1.1 Eos # (Auto) 0.0 Baso # (Auto) 0.0 Abs Immat Gran (auto) 0.06 H Absolute Neuts (auto) 13.3 H Absolute Nucleated RBC 0.000 Nucleated RBC % (auto) 0.0 PT 12.1 INR 1.1 APTT 22.7 L Anion Gap 11 L Estim Creat Clear Calc 68.0 Estimated GFR > 60 Random Glucose 152 H Lactic Acid Calcium 8.3 L Total Bilirubin 0.6 AST 31 ALT 27 Alkaline Phosphatase 48 Total Creatine Kinase 1300 H Total Protein 5.1 L Albumin 3.3 L Lipase 8 Urine Color Urine Appearance Urine pH Ur Specific [place] Urine Protein Urine Glucose (UA) Urine Ketones Urine Blood Urine Nitrite Ur Leukocyte Esterase Urine RBC Urine WBC Ur Squamous Epith Cells Calcium Oxalate Crystal Urine Bacteria Hyaline Casts Ethyl Alcohol COVID-19 (MELISSA) COVID-19 Clin Com Influenza Type A (KACI) Influenza Type B (KACI) Influenza A & B Note Blood Type Antibody Screen 08/17/22 08/17/22 08/17/22 00:37 00:37 00:37 MCV MCH MCHC RDW Plt Count MPV Immature Gran % (Auto) Neut % (Auto) Lymph % (Auto) [place] % (Auto) Eos % (Auto) Baso % (Auto) Lymph # (Auto) [place] # (Auto) Eos # (Auto) Baso # (Auto) Abs Immat Gran (auto) Absolute Neuts (auto) Absolute Nucleated RBC Nucleated RBC % (auto) PT INR APTT Anion Gap Estim Creat Clear Calc Estimated GFR Random Glucose Lactic Acid 2.0 Calcium Total Bilirubin AST ALT Alkaline Phosphatase Total Creatine Kinase Total Protein Albumin Lipase Urine Color Urine Appearance Urine pH Ur Specific [place] Urine Protein Urine Glucose (UA) Urine Ketones Urine Blood Urine Nitrite Ur Leukocyte Esterase Urine RBC Urine WBC Ur Squamous Epith Cells Calcium Oxalate Crystal Urine Bacteria Hyaline Casts Ethyl Alcohol COVID-19 (MELISSA) Negative COVID-19 Clin Com See Note Influenza Type A (KACI) Negative Influenza Type B (KACI) Negative Influenza A & B Note See Note Blood Type Antibody Screen 08/17/22 08/17/22 08/17/22 00:37 02:35 06:29 MCV 90.4 MCH 30.2 MCHC 33.4 RDW 13.2 Plt Count 235 MPV 10.0 Immature Gran % (Auto) 0.5 H Neut % (Auto) 85.7 H Lymph % (Auto) 5.3 L [place] % (Auto) 8.4 Eos % (Auto) 0.0 Baso % (Auto) 0.1 Lymph # (Auto) 0.6 L [place] # (Auto) 1.0 Eos # (Auto) 0.0 Baso # (Auto) 0.0 Abs Immat Gran (auto) 0.06 H Absolute Neuts (auto) 10.4 H Absolute Nucleated RBC 0.000 Nucleated RBC % (auto) 0.0 PT INR APTT Anion Gap Estim Creat Clear Calc Estimated GFR Random Glucose Lactic Acid Calcium Total Bilirubin AST ALT Alkaline Phosphatase Total Creatine Kinase Total Protein Albumin Lipase Urine Color Urine Appearance Urine pH Ur Specific [place] Urine Protein Urine Glucose (UA) Urine Ketones Urine Blood Urine Nitrite Ur Leukocyte Esterase Urine RBC Urine WBC Ur Squamous Epith Cells Calcium Oxalate Crystal Urine Bacteria Hyaline Casts Ethyl Alcohol < 10 COVID-19 (MELISSA) COVID-19 Clin Com Influenza Type A (KACI) Influenza Type B (KACI) Influenza A & B Note Blood Type O Positive Antibody Screen NEGATIVE 08/17/22 08/17/22 08/17/22 06:29 06:29 08:09 MCV MCH MCHC RDW Plt Count MPV Immature Gran % (Auto) Neut % (Auto) Lymph % (Auto) [place] % (Auto) Eos % (Auto) Baso % (Auto) Lymph # (Auto) [place] # (Auto) Eos # (Auto) Baso # (Auto) Abs Immat Gran (auto) Absolute Neuts (auto) Absolute Nucleated RBC Nucleated RBC % (auto) PT INR APTT Anion Gap 10 L Estim Creat Clear Calc 71.0 Estimated GFR > 60 Random Glucose 138 H Lactic Acid Calcium 8.4 Total Bilirubin AST ALT Alkaline Phosphatase Total Creatine Kinase 2007 H Total Protein Albumin Lipase Urine Color Yellow Urine Appearance Turbid Urine pH 5.5 Ur Specific [place] 1.020 Urine Protein 30 (1+) H Urine Glucose (UA) 100 H Urine Ketones 15 Urine Blood Negative Urine Nitrite Negative Ur Leukocyte Esterase Negative Urine RBC 0-2 Urine WBC 0-5 Ur Squamous Epith Cells 0-2 Calcium Oxalate Crystal Present Urine Bacteria None Seen Hyaline Casts 3-5 Ethyl Alcohol COVID-19 (MELISSA) COVID-19 Clin Com Influenza Type A (KACI) Influenza Type B (KACI) Influenza A & B Note Blood Type Antibody Screen Assessment and Plan (1) Essential hypertension: Status: Acute (2) Hypothermia due to exposure: Status: Acute Plan This is a 77-year-old female with pertinent history of essential hypertension, osteoporosis who presents to the emergency department evaluation after a fall. acute fracture of proximal left femoral diametaphysis due to mechanical fall: no history of cardiopulmonary disease, good function capacity. RCRI class I risk. no further work up required prior to planned procedure management per orthopedic surgery morphine p.r.n. for pain control rhabdomyolysis, mild CPK 2006 renal function stable continue IVF follow CPK essential hypertension: BP soft overnight, hold Lisinopril follow BP closely leukocytosis reactive from fall/fracture, trending down Normocytic anemia no recent baseline for comparison follow CBC Hypothermia r/t to exposure resolved. DVT prophylaxis: Defer Lovenox until orthopedic surgery evaluation Full code Requires ongoing inpatient hospitalization for management of fracture requiring surgery Time Spent With Patient Time: Total time managing care of this patient today ____ minutes. Quality Stroke Does the patient have a stroke diagnosis?: No VTE Prior VTE?: No VTE Risk Level:: Medical - moderate - high VTE Device Contraindication: Treatment Not Indicated VTE Drug Contraindication: Treatment Not Indicated
--- NOTE | 2022-08-17 11:58 | MHC.CM.PN ---
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
--- NOTE | 2022-08-17 14:09 | HO.ANESPROP2 ---
HPI - Anesthesia Eval Consult details Narrative: 77 F for IM nailing left side , for subtroachanteric femur fracture mild rhabdomyolysis, CPK 2006, renal function stable, Potassium 4.2 Arthritis . Patient had mechanical fall , denies LOC . PMFSH Active Problems Active Problems: All Active Problems (Updated 08/17/22 @ 06:41 by Rayshawn Childs MD) Osteoporosis (Acute) Essential hypertension (Acute) Displaced spiral fracture of shaft of left femur, initial encounter for closed fracture (Acute) Fall (Acute) Hypothermia due to exposure (Acute) Past Medical History Medical History Essential hypertension Osteoporosis Family History Family history of problems with anesthesia: No Surgical History History of Problems with Anesthesia: No Social History Social History Household Members: None Housing: House Do you presently have visiting nurse or other home services: No Alcohol intake: current Alcohol intake frequency: a few times a month Alcohol type: wine Patient Tobacco Use Status: Never used Tobacco Smoked in Last 30 Days: No e-Cigarette/Vaping Use: Never Used Second Hand Smoke Exposure: No Use of substances other than those prescribed or required for medical reasons: No Currently Displaying Signs/Symptoms of Drug Intoxication Withdrawal: No Any prior treatment program specific to substance use: No Have you been hit, kicked, punched, or otherwise hurt by someone within the past year? If so, by whom?: No Do you feel safe in your current relationship?: No Current Relationship Is there a partner from a previous relationship who is making you feel unsafe now?: No Are you made to feel afraid or neglected: No Are you DNR?: No Advance Directives: No Advance Directives on File: No Do you have thoughts of harming others: None Do you have a plan to hurt others: No Plan Recently lost weight without trying: No Eating poorly because of decreased appetite: No Nutrition Risks: No Nutritional Risk Patient : No : No Poor oral hygiene: No service: No Current occupational status: employed Meds Allergies Allergy/AdvReac Type Severity Reaction Status Date / Time No Known Allergies Allergy Verified 08/16/22 22:50 Active Medications: Current Medications Acetaminophen (Acetaminophen 325 Mg Tablet) 650 mg PO Q6H PRN PRN Reason: Pain, Mild (Pain Scale 1-3) Acetaminophen (Acetaminophen Supp 650 Mg Supp.Rect) 650 mg LA Q6H PRN PRN Reason: Pain, Mild (Pain Scale 1-3) Sodium Chloride (Ns) 1,000 mls @ 100 mls/hr IVCONT .Q10H [facility] Last Infusion: 08/17/22 13:57 Dose: Infused Melatonin (Melatonin 3 Mg Tablet) 6 mg PO BEDTIME PRN PRN Reason: Insomnia Morphine Sulfate (Morphine Sulfate 4 Mg/Ml Cartridge) 4 mg IVPUSH Q4H PRN; Protocol PRN Reason: Pain, Severe (Pain Scale 7-10) Last Admin: 08/17/22 05:21 Dose: 4 mg Ondansetron HCl (Ondansetron Hcl 4 Mg/2 Ml Vial) 4 mg IVPUSH Q8H PRN PRN Reason: Nausea and Vomiting Pharmacy Consult (Consult Rx Perform Med Rec) 1 each MISCELLANE ONCE PRN PRN Reason: Consult order Pharmacy Consult (Consult Rx Perform Med Rec) 1 each MISCELLANE ONCE PRN PRN Reason: Consult order Sodium Chloride (0.9 % Sodium Chloride Flush 3 Ml Syringe) 3 ml IVFLUSH QSHIFT [facility] Last Admin: 08/17/22 09:23 Dose: Not Given Home Medications Medication Instructions Recorded Confirmed Last Taken Type alendronate 70 mg tablet 1 tab PO RODAS 08/17/22 08/17/22 08/13/22 History calcium carbonate 600 mg-vitamin 1 tab PO DAILY 08/17/22 08/17/22 Unknown History D3 5 mcg (200 unit) tablet lisinopril 10 mg tablet 1 tab PO DAILY 08/17/22 08/17/22 08/16/22 History multivitamin (Daily Multi-Vitamin 1 tab PO DAILY 08/17/22 08/17/22 Unknown History tablet) Exam Exam Date and Time: August 17, 2022 1409 Height,Weight and Vital Signs: Height 5 ft 8 in Weight 76.1 kg Last Vital Signs Temp 98.8 F 08/17/22 12:00 Pulse 97 08/17/22 12:00 Resp 18 08/17/22 12:00 BP 130/64 08/17/22 12:00 Pulse Ox 95 08/17/22 12:00 O2 Del Method 08/17/22 12:00 Pertinent Lab Results Pertinent Lab Results: Laboratory Tests 08/17/22 08/17/22 08/17/22 00:37 00:37 00:37 WBC 15.5 H RBC 3.93 L Hgb 11.9 L Hct 36.0 L MCV 91.6 MCH 30.3 MCHC 33.1 RDW 13.1 Plt Count 244 MPV 10.1 Immature Gran % (Auto) 0.4 Neut % (Auto) 85.6 H Lymph % (Auto) 6.6 L [place] % (Auto) 7.2 Eos % (Auto) 0.1 Baso % (Auto) 0.1 Lymph # (Auto) 1.0 L [place] # (Auto) 1.1 Eos # (Auto) 0.0 Baso # (Auto) 0.0 Abs Immat Gran (auto) 0.06 H Absolute Neuts (auto) 13.3 H Absolute Nucleated RBC 0.000 Nucleated RBC % (auto) 0.0 PT 12.1 INR 1.1 APTT 22.7 L Sodium 139 Potassium 4.5 Chloride 109 H Carbon Dioxide 24 Anion Gap 11 L BUN 23 H Creatinine 0.71 Estim Creat Clear Calc 68.0 Estimated GFR > 60 Random Glucose 152 H Lactic Acid Calcium 8.3 L Total Bilirubin 0.6 AST 31 ALT 27 Alkaline Phosphatase 48 Total Creatine Kinase 1300 H Total Protein 5.1 L Albumin 3.3 L Lipase 8 Urine Color Urine Appearance Urine pH Ur Specific [place] Urine Protein Urine Glucose (UA) Urine Ketones Urine Blood Urine Nitrite Ur Leukocyte Esterase Urine RBC Urine WBC Ur Squamous Epith Cells Calcium Oxalate Crystal Urine Bacteria Hyaline Casts Ethyl Alcohol COVID-19 (MELISSA) COVID-19 Clin Com Influenza Type A (KACI) Influenza Type B (KACI) Influenza A & B Note Blood Type Antibody Screen 08/17/22 08/17/22 08/17/22 00:37 00:37 00:37 WBC RBC Hgb Hct MCV MCH MCHC RDW Plt Count MPV Immature Gran % (Auto) Neut % (Auto) Lymph % (Auto) [place] % (Auto) Eos % (Auto) Baso % (Auto) Lymph # (Auto) [place] # (Auto) Eos # (Auto) Baso # (Auto) Abs Immat Gran (auto) Absolute Neuts (auto) Absolute Nucleated RBC Nucleated RBC % (auto) PT INR APTT Sodium Potassium Chloride Carbon Dioxide Anion Gap BUN Creatinine Estim Creat Clear Calc Estimated GFR Random Glucose Lactic Acid 2.0 Calcium Total Bilirubin AST ALT Alkaline Phosphatase Total Creatine Kinase Total Protein Albumin Lipase Urine Color Urine Appearance Urine pH Ur Specific [place] Urine Protein Urine Glucose (UA) Urine Ketones Urine Blood Urine Nitrite Ur Leukocyte Esterase Urine RBC Urine WBC Ur Squamous Epith Cells Calcium Oxalate Crystal Urine Bacteria Hyaline Casts Ethyl Alcohol COVID-19 (MELISSA) Negative COVID-19 Clin Com See Note Influenza Type A (KACI) Negative Influenza Type B (KACI) Negative Influenza A & B Note See Note Blood Type Antibody Screen 08/17/22 08/17/22 08/17/22 00:37 02:08 02:35 WBC RBC Hgb 11.8 L Hct 35.1 L MCV MCH MCHC RDW Plt Count MPV Immature Gran % (Auto) Neut % (Auto) Lymph % (Auto) [place] % (Auto) Eos % (Auto) Baso % (Auto) Lymph # (Auto) [place] # (Auto) Eos # (Auto) Baso # (Auto) Abs Immat Gran (auto) Absolute Neuts (auto) Absolute Nucleated RBC Nucleated RBC % (auto) PT INR APTT Sodium Potassium Chloride Carbon Dioxide Anion Gap BUN Creatinine Estim Creat Clear Calc Estimated GFR Random Glucose Lactic Acid Calcium Total Bilirubin AST ALT Alkaline Phosphatase Total Creatine Kinase Total Protein Albumin Lipase Urine Color Urine Appearance Urine pH Ur Specific [place] Urine Protein Urine Glucose (UA) Urine Ketones Urine Blood Urine Nitrite Ur Leukocyte Esterase Urine RBC Urine WBC Ur Squamous Epith Cells Calcium Oxalate Crystal Urine Bacteria Hyaline Casts Ethyl Alcohol < 10 COVID-19 (MELISSA) COVID-19 Clin Com Influenza Type A (KACI) Influenza Type B (KACI) Influenza A & B Note Blood Type O Positive Antibody Screen NEGATIVE 08/17/22 08/17/22 08/17/22 06:29 06:29 06:29 WBC 12.2 H RBC 3.64 L Hgb 11.0 L Hct 32.9 L MCV 90.4 MCH 30.2 MCHC 33.4 RDW 13.2 Plt Count 235 MPV 10.0 Immature Gran % (Auto) 0.5 H Neut % (Auto) 85.7 H Lymph % (Auto) 5.3 L [place] % (Auto) 8.4 Eos % (Auto) 0.0 Baso % (Auto) 0.1 Lymph # (Auto) 0.6 L [place] # (Auto) 1.0 Eos # (Auto) 0.0 Baso # (Auto) 0.0 Abs Immat Gran (auto) 0.06 H Absolute Neuts (auto) 10.4 H Absolute Nucleated RBC 0.000 Nucleated RBC % (auto) 0.0 PT INR APTT Sodium 137 Potassium 4.2 Chloride 108 Carbon Dioxide 23 Anion Gap 10 L BUN 23 H Creatinine 0.68 Estim Creat Clear Calc 71.0 Estimated GFR > 60 Random Glucose 138 H Lactic Acid Calcium 8.4 Total Bilirubin AST ALT Alkaline Phosphatase Total Creatine Kinase 2007 H Total Protein Albumin Lipase Urine Color Urine Appearance Urine pH Ur Specific [place] Urine Protein Urine Glucose (UA) Urine Ketones Urine Blood Urine Nitrite Ur Leukocyte Esterase Urine RBC Urine WBC Ur Squamous Epith Cells Calcium Oxalate Crystal Urine Bacteria Hyaline Casts Ethyl Alcohol COVID-19 (MELISSA) COVID-19 Clin Com Influenza Type A (KACI) Influenza Type B (KACI) Influenza A & B Note Blood Type Antibody Screen 08/17/22 08:09 WBC RBC Hgb Hct MCV MCH MCHC RDW Plt Count MPV Immature Gran % (Auto) Neut % (Auto) Lymph % (Auto) [place] % (Auto) Eos % (Auto) Baso % (Auto) Lymph # (Auto) [place] # (Auto) Eos # (Auto) Baso # (Auto) Abs Immat Gran (auto) Absolute Neuts (auto) Absolute Nucleated RBC Nucleated RBC % (auto) PT INR APTT Sodium Potassium Chloride Carbon Dioxide Anion Gap BUN Creatinine Estim Creat Clear Calc Estimated GFR Random Glucose Lactic Acid Calcium Total Bilirubin AST ALT Alkaline Phosphatase Total Creatine Kinase Total Protein Albumin Lipase Urine Color Yellow Urine Appearance Turbid Urine pH 5.5 Ur Specific [place] 1.020 Urine Protein 30 (1+) H Urine Glucose (UA) 100 H Urine Ketones 15 Urine Blood Negative Urine Nitrite Negative Ur Leukocyte Esterase Negative Urine RBC 0-2 Urine WBC 0-5 Ur Squamous Epith Cells 0-2 Calcium Oxalate Crystal Present Urine Bacteria None Seen Hyaline Casts 3-5 Ethyl Alcohol COVID-19 (MELISSA) COVID-19 Clin Com Influenza Type A (KACI) Influenza Type B (KACI) Influenza A & B Note Blood Type Antibody Screen Airway Mallampati Class: III TM Dist: >3cm Neck ROM: Full Loose/Missing/Broken Teeth: Yes (Poor dentition overall . Multiple chipped teeth ) Heart: S1,S2 Lungs: b/l breath sounds Assessment and Plan Assessment Anesthesia Assessment: Anesthesia Plan Discussed and Chart Reviewed Final Anesthetic Review Family History of Problems with Anesthesia: No History of Problems with Anesthesia: No NPO: Yes ASA Class: III and Emergency Final Preanesthetic Review: Meds/Allgs Chart Reviewed, Consent Obtained/Reviewed and Anes Risks/Benef Reviewed Patient Risk: Intermediate Procedure Risk: Intermediate Anesthetic Plan Anesthetic Plan: GA Disposition: Inp. Admit - Standard Bed
--- NOTE | 2022-08-17 16:48 | PM.OP ---
Brief Operative Note Date of Service: 08/17/22 Pre-op diagnosis: Left subtroachanteric femur fracture Post-op diagnosis: same Procedure: IMN left femur Implants: Raji 360 x 11 135 deg imn with 95mm hip screw and 42.5 distal interlock Surgeon: Nikita Grant MD Anesthesia: GETA and local Was an Supervisor Assembly Room used for this Procedure?: Yes Supervisor Assembly Room: Mahi Dodge Estimated blood loss (mL): 150 IV fluids (mL): 800 Pathology: none sent Condition: stable Disposition: PACU
[2022-08-18] VITALS (7 sets, daily range): BP systolic 119–132; BP diastolic 59–71; PULSE 97–102; RESP 17–19; TEMP 36.7–37.6; O2SAT 90–95
[2022-08-18] MEDS: Acetaminophen 325 MG TABLET 650 MG PO ×4 (03:17→22:29)
[2022-08-18] MEDS: 0.9 % Sodium Chloride 1,000 ML 100 ML IVCONT (03:18)
[2022-08-18 06:35] LABS: Hematocrit 27.5 % (37.0-47.0); Hemoglobin 8.9 g/dl (12.0-16.0); Mean Corpuscular HGB Conc 32.4 g/dl (31.0-35.0); Mean Corpuscular Hemoglobin 29.9 pg (27.0-33.0); Mean Corpuscular Volume 92.3 fL (80.0-98.0); Mean Platelet Volume 10.8 fL (9.4-12.3); Platelet Count 198 X10*3/uL (160-400); Red Blood Count 2.98 X10*6/uL (4.20-5.50); Red Cell Distribution Width 13.6 % (11.0-16.0); White Blood Count 8.5 X10*3/uL (4.8-10.8)
[2022-08-18 07:03] LABS: Anion Gap 8 (12-20); Blood Urea Nitrogen 19 mg/dL (9-16); Calcium 7.7 mg/dL (8.4-10.2); Carbon Dioxide 24 mmol/L (22-29); Chloride 107 mmol/L (96-108); Creatinine Clr Calc Pharmacy 66.1; Estimated Glomerular Filt Rate > 60; Glucose Random 127 mg/dL (60-115); Potassium 4.2 mmol/L (3.3-5.1); Sodium 135 mmol/L (135-145)
--- NOTE | 2022-08-18 08:12 | P.PNOP_ITS ---
Subjective Subjective Date of Service: 08/18/22 Interval history: POD 1 s/p left hip IMN no overnight events resting in bed, no concerns denies sob, palpitations, cp Physical Exam Vital Signs: Vital Signs: Last Vital Signs Temp 99.7 F 08/18/22 08:00 Pulse 97 08/18/22 08:00 Resp 18 08/18/22 08:00 BP 122/62 08/18/22 08:00 Pulse Ox 95 08/18/22 08:00 O2 Del Method 08/18/22 08:00 O2 Flow Rate 1.0 08/18/22 08:00 BMI result Body Mass Index 25.4 Const: General: cooperative, healthy appearing and no acute distress Resp: Effort & Inspection: normal respiratory effort and able to speak in complete sentences Cardio: Rate: regular rate Peripheral pulses: Peripheral pulses 2+ throughout GI: Palpation (GI): Soft to palpation Skin: General skin exam: no rashes or lesions noted Extrem: Other: incision clean dry and intact. [place] intact. No erythema or effusion. Calf supple nontender. Neurovascularly intact. Procedures Date of Service Date of Service: 08/18/22 Progress Note: A&P Assessment and plan (1) Displaced spiral fracture of shaft of left femur, initial encounter for closed fracture: Status: Acute Assessment and Plan: * Continue pain mgmnt * Begin lovenox for dvt ppx * begin PT / OT for LT hip IMN * Dispo planning-Pending PT eval, pain mgmnt Time Spent With Patient Time: Total time managing care of this patient today ____ minutes. Quality Stroke Does the patient have a stroke diagnosis?: No VTE Prior VTE?: No VTE Risk Level:: Medical - moderate - high VTE Device Contraindication: Treatment Not Indicated VTE Drug Contraindication: Treatment Not Indicated
--- NOTE | 2022-08-18 08:22 | MHC.CM.PN ---
Addendum entered by Beatrice Burgos 08/18/22 14:35: CM MET WITH PT TO DISCUSS DC PLANNING SHE REPORTS SHE IS AWARE PT AND OT HAVE RECOMMENDED ACUTE REHAB HOWEVER SHE WANTS TO GO HOME SHE WAS ALSO INFORMED [facility] IS OFFERING A BED SHE REPORTS SHE REALLY WANTS TO SEE HOW SHE IS FEELING AT THE TIME OF DC AND AGAIN HOPES TO GO HOME SHE DID AGREE TO [facility]OW [facility] TO SUBMIT FOR INSURANCE AUTH IN CASE SHE DECIDES SHE NEEDS STR [facility] NOW HAS INSURANCE AUTH AND THEY ARE AWARE PT IS EXPECTED TO DC ON SUNDAY IF PT GOES TO STR, CM WILL NEED TO CONTACT THE [facility] [phone] AT [facility] TO SET UP A TIME. THIS NUMBER WILL ALSO BE GIVEN TO THE FLOOR NURSE FOR REPORT. [facility] IS ALSO FOLLOWING HOWEVER THEY HAVE NOT CONFIRMED OFFER OF SERVICES YET Original Note: REFERRALS MADE FOR BOTH STR AND VNA PTS STATED [facility]REFERENCE IS HOME WITH SERVICES [facility] IS FOLLOWING AND MAY BE ABLE TO ACCEPT PENDING PTS DC DATE [facility] IS ALSO FOLLOWING ANOTHER REFERRAL WAS MADE TO [facility] PER PTS STATED PREFERENCE.
[2022-08-18] MEDS: oxyCODONE HCl Immed Release 5 MG TABLET PO ×3 (09:05→22:22)
--- NOTE | 2022-08-18 12:22 | HO.PM.IMPN ---
Subjective Subjective Date of Service: 08/18/22 Interval History: seen and examined this morning follow up for left fracture s/p IMN left femur yesterday pain controlled at rest. denies sob, chest pain, fever or chills Review of Systems Review of Systems: Yes all other systems are reviewed and are negative Constitutional Constitutional: Denies chills and Denies fever(s) ENT Ears, Nose, Mouth, and Throat: Denies dizziness Cardiovascular Cardiovascular: Denies chest pain, Denies palpitations and Denies dyspnea Respiratory Respiratory: Denies cough and Denies dyspnea Gastrointestinal Gastrointestinal: Denies abdominal pain Neurologic Neurologic: Denies dizziness Endocrine Endocrine: Denies palpitations Physical Exam Vital Signs: Vital Signs: Last Vital Signs Temp 98.0 F 08/18/22 11:32 Pulse 100 08/18/22 11:32 Resp 19 08/18/22 11:32 BP 119/66 08/18/22 11:32 Pulse Ox 90 L 08/18/22 11:32 O2 Del Method 08/18/22 11:32 O2 Flow Rate 1.0 08/18/22 08:00 BMI result Body Mass Index 25.4 Const: General: cooperative, no acute distress, alert and awake Nutritional Appearance: average body habitus Orientation/consciousness: patient oriented x3 Resp: Effort & Inspection: normal respiratory effort and able to speak in complete sentences Auscultation: clear to auscultation bilaterally Cardio: Rate: regular rate Heart sounds: S1 normal heart sound present and S2 normal heart sound present GI: Inspection: No distended Palpation (GI): Soft to palpation Skin: Other: bruising b/l elbows Neuro: Other: grossly non-focal General: patient oriented x3 Extrem: Other: left leg incision c/d/i General: Yes no pedal edema Objective Data Active Medications Acetaminophen (Acetaminophen 325 Mg Tablet) 650 mg PO Q6H PRN PRN Reason: Pain, Mild (Pain Scale 1-3) Last Admin: 08/18/22 08:45 Dose: 650 mg Documented By: JOSE RAFAEL Acetaminophen (Acetaminophen Supp 650 Mg Supp.Rect) 650 mg NE Q6H PRN PRN Reason: Pain, Mild (Pain Scale 1-3) Enoxaparin Sodium (Enoxaparin Sodium 40 Mg/0.4 Ml Syringe) 40 mg SUBCUT Q24H CARLITA Sodium Chloride (Ns) 1,000 mls @ 100 mls/hr IVCONT .Q10H [facility] Last Admin: 08/18/22 03:18 Dose: 100 mls/hr Documented By: ALEJANDRA Melatonin (Melatonin 3 Mg Tablet) 6 mg PO BEDTIME PRN PRN Reason: Insomnia Morphine Sulfate (Morphine Sulfate 4 Mg/Ml Cartridge) 4 mg IVPUSH Q4H PRN; Protocol PRN Reason: Pain, Severe (Pain Scale 7-10) Last Admin: 08/17/22 18:31 Dose: 4 mg Documented By: MAGI Ondansetron HCl (Ondansetron Hcl 4 Mg/2 Ml Vial) 4 mg IVPUSH Q8H PRN PRN Reason: Nausea and Vomiting Oxycodone HCl (Oxycodone Hcl Immed Release 5 Mg Tablet) 5 mg PO Q4H PRN PRN Reason: Pain, Moderate (Pain Scale 4-6 Last Admin: 08/18/22 09:05 Dose: 5 mg Documented By: JOSE RAFAEL Pharmacy Consult (Consult Rx Perform Med Rec) 1 each MISCELLANE ONCE PRN PRN Reason: Consult order Pharmacy Consult (Consult Rx Perform Med Rec) 1 each MISCELLANE ONCE PRN PRN Reason: Consult order Sodium Chloride (0.9 % Sodium Chloride Flush 3 Ml Syringe) 3 ml IVFLUSH QSHIFT [facility] Last Admin: 08/18/22 09:05 Dose: Not Given Documented By: JOSE RAFAEL Non-Admin Reason: IV Running Labs 08/18/22 05:40 08/18/22 05:40 Labs: Laboratory Results - last 24 hr 08/18/22 08/18/22 05:40 05:40 MCV 92.3 MCH 29.9 MCHC 32.4 RDW 13.6 Plt Count 198 MPV 10.8 Absolute Nucleated RBC 0.000 Nucleated RBC % (auto) 0.0 Anion Gap 8 L Estim Creat Clear Calc 66.1 Estimated GFR > 60 Random Glucose 127 H Calcium 7.7 L D Total Creatine Kinase 1611 H Assessment and Plan (1) Displaced spiral fracture of shaft of left femur, initial encounter for closed fracture: Status: Acute (2) Anemia: Status: Acute Plan This is a 77-year-old female with pertinent history of essential hypertension, osteoporosis who presents to the emergency department evaluation after a fall. acute fracture of proximal left femoral diametaphysis due to mechanical fall: POD 1 s/p left hip IMN management per orthopedic surgery pain control PT/OT rec Acute rehab - pt on the fence and considering returning home rhabdomyolysis, mild CPK trending down to 1611 renal function stable d/c IVF essential hypertension: BP soft overnight, hold Lisinopril follow BP, resume as bp allows leukocytosis reactive from fall/fracture, trending down Normocytic anemia no recent baseline for comparison trending down overnight, likely r/t dilution and blood loss from surgery follow CBC Hypothermia r/t to exposure resolved. DVT prophylaxis: Lovenox per orthopedic surgery Full code attending - dr. perry Requires ongoing inpatient hospitalization for management of fracture requiring surgery Time Spent With Patient Time: Total time managing care of this patient today ____ minutes. Quality Stroke Does the patient have a stroke diagnosis?: No VTE Prior VTE?: No VTE Risk Level:: Medical - moderate - high VTE Device Contraindication: Treatment Not Indicated VTE Drug Contraindication: Treatment Not Indicated
--- NOTE | 2022-08-18 13:28 | HO.POSTANES ---
Post Anesthesia Evaluation Post Anesthesia Evaluation Vital Signs: Vital Signs Temp Pulse Resp BP Pulse Ox O2 Del Method O2 Flow Rate 08/18/22 11:32 98.0 F 100 19 119/66 90 L Room Air 08/18/22 10:46 97 122/62 95 08/18/22 08:00 99.7 F 97 18 122/62 95 Nasal Cannula 1.0 08/18/22 03:20 98.6 F 102 H 18 131/62 95 Room Air Anesthesia: General Mental Status: Awake Pain Control: Satisfactory Nausea/Vomiting: None Hydration: Adequate Anesthesia-Related Issues: No Anes. Related Issues
--- NOTE | 2022-08-18 14:58 | PC.NURSE ---
rashid removed at 1400. 650cc yellow urine. DTV #1 at 2000.
--- NOTE | 2022-08-18 15:51 | W.PM.OPN ---
Operative Note Operative Note Date of Service: 08/17/22 Narrative: Date of Service: 08/17/22 Pre-op diagnosis: Left subtroachanteric femur fracture Post-op diagnosis: same Procedure: IMN left femur Implants: Raji 360 x 11 135 deg imn with 95mm hip screw and 42.5 distal interlock Surgeon: Nikita Grant MD Anesthesia: GETA and local Was an Drop Hammer Setter Up used for this Procedure?: Yes Drop Hammer Setter Up: Mahi Dodge Estimated blood loss (mL): 150 IV fluids (mL): 800 Pathology: none sent Condition: stable Disposition: PACU Procedure in detail: Patient was brought to the operating room and prepped and draped in standard sterile fashion. Time-out was called to identify proper site procedure proper surgeon and IV antibiotics per weight were administered. She was positioned on the fracture table and a traction and slight internal rotation were performed and biplanar fluoroscopy confirmed initial fracture reduction. Thiw was a segmental sub-trochanteric fracture. I then made a stab incision proximal to the greater trochanter in using a guidewire made a entry point just lateral to the tip of the greater trochanter and placed a guidewire into the femoral metadiaphysis. I then over-reamed with 15 mm Reamer placed my ball-tip guidewire down distally in the femur and measured my length. I selected a 360 x 11 125 deg im nail and reamed up to a 13. I then placed a the nail. I then turned my attention to the hip screw where I used a guidewire and a tip apex distance of less than 1.5 measured my hip screw. I then pre drilled and placed a hip screw using biplanar fluoroscopy. Once I was happy with the position of the hip screw I turned my attention to the distal aspect of the nail. Using perfect napaimute technique I placed 1 static distal interlocking screw in standard AO technique. I then removed all I then placed my set screw proximally and removed all extraneous instrumentation. Final biplanar radiographs were taken. I was satisfied with the position of the hardware and the fracture reduction. I think copiously irrigated closed with absorbable sutures kisha and injected 30 mL of into the area of the incisions. Traction was let down patient was placed in sterile dressing awakened from anesthesia brought to recovery room stable condition there were no known complications.
[2022-08-18] MEDS: 0.9 % Sodium Chloride Flush 3 ML SYRINGE IVFLUSH ×2 (15:59→22:22)
[2022-08-18] MEDS: Enoxaparin Sodium 40 MG/0.4 ML SYRINGE SUBCUT (16:02)
[2022-08-19] VITALS: BP 117/57; PULSE 99; RESP 18; TEMP 36.9; O2SAT 94
[2022-08-19] MEDS: Morphine Sulfate 4 MG/ML CARTRIDGE IVPUSH (02:35)
[2022-08-19 03:23] VITALS: BP 131/60; PULSE 98; RESP 18; TEMP 37.2; O2SAT 93
[2022-08-19 07:10] LABS: MANUAL DIFF FLAG NO
[2022-08-19 07:14] LABS: Basophils Percent Auto 0.1 % (0-2); Eosinophils Absolute Auto 0.1 X10*3/uL (0.0-0.4); Eosinophils Percent Auto 1.2 % (0-4); Hematocrit 24.7 % (37.0-47.0); Hemoglobin 8.1 g/dl (12.0-16.0); Imm Gran Pct Auto 1.2 % (0.0-0.4); Lymphocytes Absolute Auto 1.5 X10*3/uL (1.2-4.9); Lymphocytes Percent Auto 18.5 % (20-40); Mean Corpuscular HGB Conc 32.8 g/dl (31.0-35.0); Mean Corpuscular Hemoglobin 29.9 pg (27.0-33.0); Mean Corpuscular Volume 91.1 fL (80.0-98.0); Mean Platelet Volume 10.1 fL (9.4-12.3); Monocytes Absolute Auto 0.8 X10*3/uL (0.1-1.2); Monocytes Percent Auto 9.3 % (2-11); Neutrophils Absolute Auto 5.6 x10*3/uL (2.0-8.3); Neutrophils Percent Auto 69.7 % (45-73); Platelet Count 178 X10*3/uL (160-400); Red Blood Count 2.71 X10*6/uL (4.20-5.50); Red Cell Distribution Width 13.3 % (11.0-16.0); White Blood Count 8.1 X10*3/uL (4.8-10.8)
[2022-08-19 07:29] VITALS: BP 136/63; PULSE 97; RESP 17; TEMP 37.7; O2SAT 93
[2022-08-19 07:30] LABS: Hematocrit 24.2 % (37.0-47.0); Hemoglobin 7.9 g/dl (12.0-16.0); Mean Corpuscular HGB Conc 32.6 g/dl (31.0-35.0); Mean Corpuscular Hemoglobin 29.8 pg (27.0-33.0); Mean Corpuscular Volume 91.3 fL (80.0-98.0); Mean Platelet Volume 10.7 fL (9.4-12.3); Platelet Count 185 X10*3/uL (160-400); Red Blood Count 2.65 X10*6/uL (4.20-5.50); Red Cell Distribution Width 13.5 % (11.0-16.0); White Blood Count 7.4 X10*3/uL (4.8-10.8)
--- NOTE | 2022-08-19 07:41 | P.PNOP_ITS ---
Subjective Subjective Date of Service: 08/19/22 Interval history: POD 2 s/p left hip IMN no overnight events resting in bed, feels like her knee is stiff denies sob, palpitations, cp Physical Exam Vital Signs: Vital Signs: Last Vital Signs Temp 99.9 F 08/19/22 07:29 Pulse 97 08/19/22 07:29 Resp 17 08/19/22 07:29 BP 136/63 08/19/22 07:29 Pulse Ox 93 08/19/22 07:29 O2 Del Method 08/19/22 07:29 O2 Flow Rate 1.0 08/18/22 08:00 BMI result Body Mass Index 25.4 Const: General: cooperative, healthy appearing and no acute distress Resp: Effort & Inspection: normal respiratory effort and able to speak in complete sentences Cardio: Rate: regular rate Peripheral pulses: Peripheral pulses 2+ throughout GI: Palpation (GI): Soft to palpation Skin: General skin exam: no rashes or lesions noted Extrem: Other: incision clean dry and intact. Larry intact. No erythema or effusion. Calf supple nontender. Neurovascularly intact. Procedures Date of Service Date of Service: 08/19/22 Progress Note: A&P Assessment and plan (1) Displaced spiral fracture of shaft of left femur, initial encounter for closed fracture: Status: Acute Assessment and Plan: * Continue pain mgmnt * lovenox for dvt ppx * PT / OT for LT hip IMN * Dispo planning-PT / rehab placement Time Spent With Patient Time: Total time managing care of this patient today ____ minutes. Quality Stroke Does the patient have a stroke diagnosis?: No VTE Prior VTE?: No VTE Risk Level:: Medical - moderate - high VTE Device Contraindication: Treatment Not Indicated VTE Drug Contraindication: Treatment Not Indicated
[2022-08-19 07:45] LABS: Anion Gap 12 (12-20); Blood Urea Nitrogen 12 mg/dL (9-16); Calcium 8.2 mg/dL (8.4-10.2); Carbon Dioxide 25 mmol/L (22-29); Chloride 106 mmol/L (96-108); Creatinine Clr Calc Pharmacy 83.2; Estimated Glomerular Filt Rate > 60; Glucose Random 121 mg/dL (60-115); Potassium 3.9 mmol/L (3.3-5.1); Sodium 139 mmol/L (135-145)
[2022-08-19] MEDS: oxyCODONE HCl Immed Release 5 MG TABLET PO (09:39)
[2022-08-19] MEDS: Acetaminophen 325 MG TABLET 650 MG PO (09:40)
[2022-08-19] MEDS: 0.9 % Sodium Chloride Flush 3 ML SYRINGE IVFLUSH (09:40)
--- NOTE | 2022-08-19 11:18 | PM.DS ---
DS: Providers Provider Date of Service: 08/19/22 Date of admission: 08/17/22 02:21 Primary care physician: Dave Girard MD Consults: 08/17/22 02:23 Consult to Orthopedics Routine Consulting Provider: Nikita Grant Reason for consultation: left femoral fracture Attending physician on discharge: [facility] Discharging clinician: Marcela Ibarra DS: Diagnosis Discharge Diagnosis (1) Displaced spiral fracture of shaft of left femur, initial encounter for closed fracture: Status: Acute DS: Summary Hospital Course Hospital Course: HP as per admitting provider This is a 77-year-old female with pertinent history of essential hypertension, osteoporosis who presents to the emergency department evaluation after a fall.? Patient states she was feeding her cats and 1 of the cats caught in between her legs and she fell.? No loss of consciousness, no rhythmic jerking movement of extremities, no tongue bite, no dizziness or lightheadedness prior to the fall.? Patient fell on her left hip and states her left hip has been hurting since.? Patient states that she was unable to get up after the fall and she was lying on the floor for about 3 hours.? She called EMS who able to pick her and found her a pool of sweat.? Patient denies fever, chills, chest discomfort, palpitations, shortness of breath, abdominal pain, changes in urinary or bowel habits. In the emergency department, imaging with left femoral fracture . acute fracture of proximal left femoral diametaphysis due to mechanical fall s/p left hip IMN pain control STR Follow up with ortho outpatient Lovenox for 4 weeks rhabdomyolysis, mild CPK trending down to 1611 renal function stable d/c IVF essential hypertension Home medications leukocytosis reactive from fall/fracture, trending down Normocytic anemia no recent baseline for comparison trending down overnight, likely r/t dilution and blood loss from surgery follow CBC Hypothermia r/t to exposure resolved. Time Spent with Patient Time attestation: Total time managing care of this patient today ____ minutes. Discharge coordination time: Greater than 30 minutes Quality: Safe Use of Opioids Does Pt have an Active Cancer Diagnosis on the Problem List?: No Quality: Stroke Does the patient have a stroke diagnosis?: No Physical Exam Vital Signs: Vital Signs: Last Vital Signs Temp 99.9 F 08/19/22 07:29 Pulse 97 08/19/22 07:29 Resp 17 08/19/22 07:29 BP 136/63 08/19/22 07:29 Pulse Ox 93 08/19/22 07:29 O2 Del Method 08/19/22 07:29 O2 Flow Rate 1.0 08/18/22 08:00 BMI result Body Mass Index 25.4 Appearing in no acute distress head is normocephalic atraumatic eyes pupils are PERRLA sclera is anicteric mouth throat mucous membranes are intact and moist neck is supple no lymphadenopathy, no JVD noted lung sounds are clear to auscultation heart regular rate rhythm, clear S1, S2 positive bowel sounds, abdomen is soft, nontender neuro patient is alert x3, no focal deficits DS: Data Data Completed and Pending Labs on day of discharge: Laboratory Results - last 24 hr 08/19/22 08/19/22 08/19/22 05:47 06:59 06:59 WBC 7.4 8.1 RBC 2.65 L 2.71 L Hgb 7.9 L 8.1 L Hct 24.2 L 24.7 L MCV 91.3 91.1 MCH 29.8 29.9 MCHC 32.6 32.8 RDW 13.5 13.3 Plt Count 185 178 MPV 10.7 10.1 Immature Gran % (Auto) 1.2 H Neut % (Auto) 69.7 Lymph % (Auto) 18.5 L [place] % (Auto) 9.3 Eos % (Auto) 1.2 Baso % (Auto) 0.1 Lymph # (Auto) 1.5 [place] # (Auto) 0.8 Eos # (Auto) 0.1 Baso # (Auto) 0.0 Abs Immat Gran (auto) 0.10 H Absolute Neuts (auto) 5.6 Absolute Nucleated RBC 0.000 0.000 Nucleated RBC % (auto) 0.0 0.0 Sodium 139 Potassium 3.9 Chloride 106 Carbon Dioxide 25 Anion Gap 12 BUN 12 Creatinine 0.58 Estim Creat Clear Calc 83.2 Estimated GFR > 60 Random Glucose 121 H Calcium 8.2 L D Discharge Plan Discharge Anticipated Discharge Date/Time: 08/19/22 10:52 Patient Disposition: Xfer Inpatient Rehab Fac Discharge Diagnosis: Acute fracture of proximal left femoral diametaphysis s/p IMN rhabdomyolysis Hypothermia Referrals: Dave Girard MD [Primary Care Provider] - 1 Week Discharge Medications: New enoxaparin 40 mg/0.4 mL Syringe 40 mg subcut Q24H 28 Days Qty: 11.2 0RF oxycodone 5 mg Tablet 5 mg PO Q4H PRN (Reason: Pain, Moderate (Pain Scale 4-6) Qty: 18 0RF Rx Instructions: Partial Fill upon patient request. Continued alendronate 70 mg tablet 1 tab PO RODAS lisinopril 10 mg tablet 1 tab PO DAILY multivitamin [Daily Multi-Vitamin] Tablet 1 tab PO DAILY calcium carbonate-vitamin D3 600 mg-5 mcg (200 unit) Tablet 1 tab PO DAILY Discharge Orders: Discharge Order (Routine); Ordered 08/19/22 Ordered By: Marcela Ibarra Diet: Advance to usual diet Activity on Discharge: As tolerated Stand Alone Forms: Patient Portal Discharge page Care Plan Goals: return home after rehab Health Concerns: Acute fracture of proximal left femoral diametaphysis s/p IMN rhabdomyolysis Hypothermia Plan of Treatment: Follow-up with primary care provider after rehab Take all medications as prescribed Assessment: see discharge summary
--- NOTE | 2022-08-19 11:47 | MHC.CM.PN ---
Addendum entered by Beatrice Burgos 08/19/22 13:16: RAPID COVID COMPLETED, NEGATIVE RESULTS UPLOADED TO [employer] Original Note: PT WAS CLEARED TO DISCHARGE TODAY SHE NOW AGREES TO STR AT [facility] INSURANCE AUTH OBTAINED YESTERDAY BLS TRANSPORT ARRANGED FOR 1200 HOURS VIA [facility] IMM DELIVERED ON 08/17/22
[2022-08-19 12:52] LABS: COVID-19 Test Negative (Negative); IDNOW Serial# 08D9AD1C
== END 2022-08-19 12:45 | DRG 481 ==
LOC: HO.ED 08-17 02:32 → HO.EDOVER 08-17 02:52 → HO.S3 08-17 03:52
PROVIDERS: Orthopaedic Surgery; Physician Assistant; Physician Assistant Medical; Admitting Provider Student in an Organized Health Care Education/Training Program; Emergency Provider Emergency Medicine Emergency Medical Services; PCP Internal Medicine; Visit Provider Nurse Practitioner Acute Care
DX: S72.142A Displaced intertrochanteric fracture of left femur, initial encounter for closed fracture (principal); M62.82 Rhabdomyolysis; D72.829 Elevated white blood cell count, unspecified; D50.0 Iron deficiency anemia secondary to blood loss (chronic); W01.0XXA Fall on same level from slipping, tripping and stumbling without subsequent striking against object, initial encounter; T68.XXXA Hypothermia, initial encounter; X31.XXXA Exposure to excessive natural cold, initial encounter; I10 Essential (primary) hypertension; M81.0 Age-related osteoporosis without current pathological fracture; Z20.822 Contact with and (suspected) exposure to COVID-19; Z79.899 Other long term (current) drug therapy
CPT/HCPCS: 36415; 71045; 73502; 73560; 80048; 80053; 81001; 82077; 82550; 83605; 83690; 85014; 85018; 85025; 85027; 85610; 85730; 86850; 86900; 86901; 87502; 87635; 93005; 97110; 97116; 97162; 97166; 99285; C1713; C1758; C1769; J0131; J1650; J2250; J2270; J2370; J2405; J2795; J3010

== ENCOUNTER → 2022-08-24 14:00 | Outpatient (BNVA) | payer MEDICARE, SELFPAY | PROVIDERS: PCP Internal Medicine; Visit Provider Physician Assistant | DX: S72.342D Displaced spiral fracture of shaft of left femur, subsequent encounter for closed fracture with routine healing (principal) | CPT/HCPCS: 99212 ==

== ENCOUNTER 2022-09-19 09:08 | Outpatient (REF) | payer MEDICARE, SELFPAY ==
[2022-09-19 11:07] LABS: MANUAL DIFF FLAG NO
[2022-09-19 11:39] LABS: Basophils Percent Auto 0.3 % (0-2); Eosinophils Absolute Auto 0.3 X10*3/uL (0.0-0.4); Eosinophils Percent Auto 4.9 % (0-4); Hematocrit 42.2 % (37.0-47.0); Hemoglobin 13.2 g/dl (12.0-16.0); Imm Gran Abs Auto 0.03 X10*3/uL (0.00-0.03); Imm Gran Pct Auto 0.5 % (0.0-0.4); Lymphocytes Absolute Auto 1.5 X10*3/uL (1.2-4.9); Lymphocytes Percent Auto 23.6 % (20-40); Mean Corpuscular HGB Conc 31.3 g/dl (31.0-35.0); Mean Corpuscular Hemoglobin 30.1 pg (27.0-33.0); Mean Corpuscular Volume 96.3 fL (80.0-98.0); Mean Platelet Volume 10.7 fL (9.4-12.3); Monocytes Absolute Auto 0.6 X10*3/uL (0.1-1.2); Monocytes Percent Auto 9.6 % (2-11); Neutrophils Percent Auto 61.1 % (45-73); Platelet Count 322 X10*3/uL (160-400); Red Blood Count 4.38 X10*6/uL (4.20-5.50); White Blood Count 6.5 X10*3/uL (4.8-10.8)
[2022-09-19 12:05] LABS: Alanine Aminotransferase 21 U/L (0-31); Albumin Level 4.1 g/dL (3.5-5.0); Alkaline Phosphatase 179 U/L (39-117); Anion Gap 13 (12-20); Aspartate Amino Transferase 17 U/L (5-31); Bilirubin Total 0.5 mg/dL (0.0-1.0); Blood Urea Nitrogen 15 mg/dL (9-16); Carbon Dioxide 25 mmol/L (22-29); Chloride 107 mmol/L (96-108); Cholesterol 236 mg/dL; Estimated Glomerular Filt Rate > 60; Glucose Random 108 mg/dL (60-115); HDL Cholesterol 51 mg/dL; Iron 74 mcg/dL (30-160); LDL Cholesterol Calculated 162 mg/dl; Percent Iron Saturation 28 % (15-50); Potassium 4.4 mmol/L (3.3-5.1); Sodium 141 mmol/L (135-145); Total Iron Binding Capacity 268 mcg/dL (228-428); Total Protein 6.5 g/dL (6.5-8.0); Triglycerides 118 mg/dL; Unsaturated Iron Binding 194 ug/dL
[2022-09-19 12:11] LABS: Vitamin B12 424 pg/mL (200-900); Vitamin D 25-OH Total 38.1 ng/mL (>30)
== END 2022-09-19 09:09 | disposition home or self-care (01) ==
LOC: HO.HMGCLDS 09:08
PROVIDERS: PCP Internal Medicine; Visit Provider Internal Medicine
DX: Z00.00 Encounter for general adult medical examination without abnormal findings (principal); D64.9 Anemia, unspecified; I10 Essential (primary) hypertension; Z87.81 Personal history of (healed) traumatic fracture
CPT/HCPCS: 36415; 80053; 80061; 82306; 82607; 83540; 85025

== ENCOUNTER 2022-09-21 07:34 | Outpatient (REF) | payer MEDICARE, SELFPAY ==
--- NOTE | ~2022-09-21 | XR_ITS ---
EXAMINATION: XR FEMUR, LEFT CLINICAL INFORMATION: Displaced spiral fracture of femoral shaft. COMPARISON: X-ray 08/17/2022 TECHNIQUE: 4 views of the left femur were obtained. FINDINGS: Status post intramedullary nail transfixing a left femoral subtrochanteric fracture. Single locking screw distally. Improved alignment of the fracture fragments as compared to the preoperative imaging. There are displaced osseous fragments medially, similar to the prior imaging, with periosteal reaction/callus formation medially. Hardware is intact. No evidence of hardware failure. Moderate-severe left hip arthritis. In the left knee, there is medial greater than lateral compartment arthritis. Small ossifications medial to the joint space. XR/XR femur LT 2V IMPRESSION: Status postsurgical fixation of a comminuted left femoral intertrochanteric fracture. Evidence of callus formation/periosteal changes. Intact hardware. Left hip moderate - severe osteoarthritis. Left knee osteoarthritis.
== END 2022-09-21 07:35 | disposition home or self-care (01) ==
LOC: HO.HOSX 07:34
PROVIDERS: Visit Provider Physician Assistant
DX: S72.342D Displaced spiral fracture of shaft of left femur, subsequent encounter for closed fracture with routine healing (principal)
CPT/HCPCS: 73552; 99212

== ENCOUNTER 2022-11-10 09:02 | Outpatient (REF) | payer MEDICARE, SELFPAY ==
--- NOTE | ~2022-11-10 | XR_ITS ---
EXAMINATION: XR FEMUR, LEFT CLINICAL INFORMATION: Femur fracture COMPARISON: Previous x-ray September 2022 TECHNIQUE: AP and lateral views of the left femur were obtained. FINDINGS: There is an intramedullary marlene, compression/lag screw in the proximal femur and single cortical screw in the distal shaft. The single cortical screw in the distal femoral shaft is broken. This is new from September 2022 exam. Orthopedic hardware is otherwise intact. There is a healing fracture of the intratrochanteric/subtrochanteric region and proximal femoral shaft. There is a displaced lesser trochanter fracture fragment. Fracture appears unchanged Hoang September 2022. There is arthritis at the left hip joint. There is arthritis at the knee joint. Soft tissues are unremarkable. XR/XR femur LT 2V IMPRESSION: Fracture of the distal cortical screw in the distal femoral shaft. Orthopedic hardware otherwise unchanged. No change in comminuted displaced inter/subtrochanteric fracture and fracture of the proximal femoral shaft. Findings will be communicated by the [place] work flow money order clerk.
== END 2022-11-10 09:03 | disposition home or self-care (01) ==
LOC: HO.HOSX 09:02
PROVIDERS: Visit Provider Physician Assistant
DX: S72.342A Displaced spiral fracture of shaft of left femur, initial encounter for closed fracture (principal)
CPT/HCPCS: 73552; 99212

== ENCOUNTER 2023-01-19 10:30 | Outpatient (RCR) | payer MEDICARE, SELFPAY | END 2023-03-07 10:29 | disposition home or self-care (01) | LOC: HO.OT 10:30 | PROVIDERS: PCP Internal Medicine; Visit Provider Orthopaedic Surgery Hand Surgery | DX: G56.01 Carpal tunnel syndrome, right upper limb (principal) | CPT/HCPCS: 97035; 97110; 97140; 97166 ==

== ENCOUNTER 2023-01-19 11:00 | Outpatient (RCR) | payer MEDICARE, SELFPAY ==
--- NOTE | 2022-12-15 13:49 | MHC.PT.EP ---
[facility] [place] Office [place] Office [place] Office [address] Abeba Squires [address] [phone] F: [phone] F: [phone] F: [phone] F: [phone] Physical Therapy Plan of Care Date of Evaluation: Date of Surgery: 08/17/22 Diagnosis: displaced fx of L femur s/p IMN nailing (RL) Assessment: pt is a 77 y/o female presenting to physical therapy w/ referring diagnosis of S72.342A displaced spiral fracture of shaft of left femur, initial encounter for closed fracture. Impairments include pain, decreased range of motion, decreased strength, impaired functional mobility, impaired postural awareness, and altered ambulation mechanics. pt is a good candidate for skilled PT due to age, potential remediation of impairments, typical disease/condition progression and prognosis, comorbidities, and motivation. pt would benefit from skilled PT intervention to provide a tailored strengthening and stretching exercise program, functional training, gait training, postural re-training, neuromuscular re-education, modalities as needed for pain, equipment safety demonstration. Frequency and Duration: The patient will be seen 2x/wk for 5 wks Short Term Goals: pt will be I w/ HEP to promote self-management of condition. pt will improve L hip flexion and knee extension strength by 1 MMT grade to promote ease in stair navigation. Clinical Staff Educator Goals: pt will ambulate household distances w/o AD to return to PLOF. pt will report a statistically significant improvement in self-reported outcome measure, LEFI, to promote return to PLOF. Treatment Plan: Modalities to reduce pain, spasms and effusion. Manual therapy to restore motion and function. Therapeutic exercise to improve strength and flexibility. Neuromuscular re-education for posture and balance. Therapeutic activities to return to functional activities of daily living. Electronically signed by: Radha Lorenzo PT, DPT Please sign and return to therapist. Thank you for your referral.
--- NOTE | 2023-02-20 10:41 | MHC.PT.DC ---
[facility] [place] [facility] [place] [facility] [place] [facility] [address] Abeba Squires [address] [phone] F: [phone] F: [phone] F: [phone] F: [phone] Physical Therapy Discharge Report Diagnosis: displaced fx of L femur s/p IMN nailing (RL) Date of Surgery: 08/17/22 Date of Evaluation: 12/15/22 Date of Discharge: 02/20/23 Treatments to Date: 10 Cancellations to Date: 1 No Shows to Date: 1 Discharge Status: Recommend MD Follow-up Discharge Summary: The patient was attending her appointments as expected but then did not schedule any more follow-ups and has not been seen in approximately one month. I personally called the patient last week encouraging her to schedule more visits as she needs more strengthening. She did not call back to schedule. I have to discharge her chart at this time but I am recommending she follow-up with her referring provider to assess her current status. Electronically signed by: Radha Lorenzo PT, DPT Please sign and return to therapist. Thank you for your referral.
== END 2023-02-20 10:41 | disposition home or self-care (01) ==
LOC: HO.PT 11:00
PROVIDERS: PCP Internal Medicine; Visit Provider Physician Assistant
DX: S72.342A Displaced spiral fracture of shaft of left femur, initial encounter for closed fracture (principal)
CPT/HCPCS: 97110; 97162

== ENCOUNTER 2023-02-16 09:36 | Outpatient (AMB) | payer MEDICARE, SELFPAY ==
--- NOTE | 2023-02-16 09:57 | A.OFFVIS_ITS ---
Intake Vital Signs 02/16/23 09:58 Height 5 ft 7 in Weight 165 lb BMI 25.8 Intake Visit Reasons: OV- IMN left femur, 08/17/22 NE Intake Note: Donna is a 77 year old female who presents today for a post operative appointment s/p Left Femur IMN 08/17/22. Patient reports she is doing well. She was wondering if she can continue with PT because she is having trouble with doing her exercises at home. Allergies No Known Allergies Allergy (Verified 02/16/23 09:58) HPI OV- IMN left femur, 08/17/22 NE HPI Details 77-year-old female who presents in the o ffice today 6 month status post left femur IM nailing, which was performed on 08/17/[address] Grant. The patient reports she is doing well. She would like to know if she can continue her recovery with physical therapy due to having issues with at home exercises. PFSH Medical History Anemia Essential hypertension Osteoporosis Social History Household Members: None Housing: House Do you presently have visiting nurse or other home services: No Alcohol intake: current Alcohol intake frequency: a few times a month Alcohol type: wine Patient Tobacco Use Status: Never used Tobacco e-Cigarette/Vaping Use: Never Used Second Hand Smoke Exposure: No service: No Current occupational status: employed Review of Systems Const All systems reviewed & are unremarkable except as noted in HPI and below Physical Exam Vital Signs: BMI result Body Mass Index 25.8 Const General: cooperative, healthy appearing and no acute distress Resp Effort & Inspection: normal respiratory effort and able to speak in complete sentences Cardio Rate: regular rate Peripheral pulses: Peripheral pulses 2+ throughout GI Palpation (GI): Soft to palpation Skin Lesions: no lesions Rashes: no rashes Extrem Other: Left femur: Able to perform straight leg raise. Good internal and external rotation along with hip flexion and extension with out deficits. Patient ambulates with cane. Assessment & Plan Assessment & Plan (1) Displaced spiral fracture of shaft of left femur, initial encounter for closed fracture: Comment: Left femur IM nailing 08/17/2022 NE Code(s): S72.342A - Displaced spiral fracture of shaft of left femur, initial encounter for closed fracture Plan Ms. Galeano is a 77-year-old female who presents in the office today 6 month status post left femur IM nailing, which was performed on 08/17/[address] Grant. The patient reports she is doing well. She would like to know if she can continue her recovery with physical therapy due to having issues with at home exercises. I recommended the patient continues to use the cane to assist with balance and ambulation. She did ask if she had to attend physical therapy. Due to her doing well and being able to ambulate without pain I have left the decision up to the patient. She would like to work on the at home exercise program. Should she feel she is not progressing or plateauing she will call the office and a referral will be placed. Follow up will be in 6 months, or sooner if needed. X-rays of the left femur which were obtained while in the office today and were reviewed by me, Crystal Lopez PA-C, revealed intact orthopedic hardware with routine healing. Orders: Orders XR pelvis 1-2V Today M25.559 - Pain in unspecified hip Patient Instructions: Scribed for Crystal Lopez PA-C by Yu Blas medical information specialist, on 02/16/2023 at 9:38 am, EST. Coding Level of Care Code Est Pt Level 3 (53837) Diagnoses Displaced spiral fracture of shaft of left femur, initial encounter for closed fracture S72.342A
[2023-02-16 09:58] VITALS: BMI 25.8
== END 2023-02-16 10:03 | disposition home or self-care (01) ==
PROVIDERS: PCP Internal Medicine; Visit Provider Physician Assistant
DX: S72.342D Displaced spiral fracture of shaft of left femur, subsequent encounter for closed fracture with routine healing (principal)
CPT/HCPCS: 99213

== ENCOUNTER 2023-02-16 10:40 | Outpatient (REF) | payer MEDICARE, SELFPAY ==
--- NOTE | ~2023-02-16 | XR_ITS ---
EXAMINATION: XR PELVIS CLINICAL INFORMATION: Pain in unspecified hip COMPARISON: Left femur 11/10/2022 TECHNIQUE: AP view of the pelvis. FINDINGS: No acute fracture. On the left, there is an intramedullary marlene and compression screw in the proximal femur. Orthopedic hardware appears intact. There is a healing fracture of the left intertrochanteric/subtrochanteric region and proximal femoral shaft. There is a displaced left lesser trochanter fracture fragment. No interval change in the position or alignment of the fracture fragments. There is marked osteoarthritis of the left hip and mild osteoarthritis of the right hip. Sacroiliac joints and pubic symphysis are normal. Degenerative changes are seen in the lower lumbar spine. Multiple calcified phleboliths are seen within the pelvis. XR/XR pelvis 1-2V IMPRESSION: 1. Healing fracture of the left intertrochanteric/subtrochanteric region and proximal femoral shaft. 2. No interval change in position or alignment of the fracture fragments. 3. No evidence of hardware complication of intramedullary marlene and compression screw in the proximal left femur.
== END 2023-02-16 10:41 | disposition home or self-care (01) ==
LOC: HO.HOSX 10:40
PROVIDERS: Visit Provider Physician Assistant
DX: S72.342D Displaced spiral fracture of shaft of left femur, subsequent encounter for closed fracture with routine healing (principal); M25.552 Pain in left hip; X58.XXXD Exposure to other specified factors, subsequent encounter
CPT/HCPCS: 72170; 99212

== ENCOUNTER 2023-07-27 11:44 | Outpatient (REF) | payer MEDICARE, SELFPAY ==
[2023-07-27 13:18] LABS: MANUAL DIFF FLAG NO
[2023-07-27 13:29] LABS: Basophils Percent Auto 0.5 % (0-2); Eosinophils Absolute Auto 0.2 X10*3/uL (0.0-0.4); Eosinophils Percent Auto 2.9 % (0-4); Hematocrit 46.1 % (37.0-47.0); Hemoglobin 15.2 g/dl (12.0-16.0); Imm Gran Abs Auto 0.02 X10*3/uL (0.00-0.03); Imm Gran Pct Auto 0.3 % (0.0-0.4); Lymphocytes Absolute Auto 1.7 X10*3/uL (1.2-4.9); Lymphocytes Percent Auto 26.6 % (20-40); Mean Corpuscular Hemoglobin 29.8 pg (27.0-33.0); Mean Corpuscular Volume 90.4 fL (80.0-98.0); Mean Platelet Volume 10.9 fL (9.4-12.3); Monocytes Absolute Auto 0.5 X10*3/uL (0.1-1.2); Monocytes Percent Auto 7.6 % (2-11); Neutrophils Absolute Auto 4.1 x10*3/uL (2.0-8.3); Neutrophils Percent Auto 62.1 % (45-73); Platelet Count 263 X10*3/uL (160-400); Red Cell Distribution Width 13.2 % (11.0-16.0); White Blood Count 6.6 X10*3/uL (4.8-10.8)
[2023-07-27 14:18] LABS: Alanine Aminotransferase 20 U/L (0-31); Albumin Level 4.3 g/dL (3.5-5.0); Alkaline Phosphatase 84 U/L (39-117); Anion Gap 11 (12-20); Aspartate Amino Transferase 19 U/L (5-31); Bilirubin Total 0.4 mg/dL (0.0-1.0); Blood Urea Nitrogen 19 mg/dL (9-16); Calcium 10.1 mg/dL (8.4-10.2); Carbon Dioxide 27 mmol/L (22-29); Chloride 105 mmol/L (96-108); Estimated Glomerular Filt Rate > 60; Glucose Random 101 mg/dL (60-115); Potassium 4.4 mmol/L (3.3-5.1); Sodium 139 mmol/L (135-145); Total Protein 7.3 g/dL (6.5-8.0)
[2023-07-27 14:19] LABS: Free T4 (Free Thyroxine) 0.85 ng/dL (0.71-1.85); Thyroid Stimulating Hormone 1.36 uIU/mL (0.32-4.0); Vitamin D 25-OH Total 42.6 ng/mL (>30)
== END 2023-07-27 11:45 | disposition home or self-care (01) ==
LOC: HO.10HDL 11:44
PROVIDERS: Referring Provider Physician Assistant; Visit Provider Internal Medicine
DX: I10 Essential (primary) hypertension (principal); M81.0 Age-related osteoporosis without current pathological fracture; E78.00 Pure hypercholesterolemia, unspecified
CPT/HCPCS: 36415; 80053; 82306; 84439; 84443; 85025

== ENCOUNTER 2023-08-17 08:03 | Outpatient (REF) | payer MEDICARE, SELFPAY ==
--- NOTE | ~2023-08-17 | XR_ITS ---
EXAMINATION: AP PELVIS AND LEFT FEMUR X-RAYS CLINICAL INFORMATION: Pain in unspecified hip. COMPARISON: 02/16/2023, 11/10/2022 and 09/21/2022 radiographs. TECHNIQUE: AP view of the pelvis. 2 lateral and 3 AP views of the left hip. FINDINGS: Degenerative changes with levoscoliosis in the imaged lower lumbar spine. Moderate degenerative changes in the bilateral sacroiliac joints. Redemonstration of advanced degenerative changes on single AP view of the right hip. Advanced degenerative changes in the left hip. Redemonstration of healing fracture of the left intertrochanteric/subtrochanteric region and proximal femoral shaft with displacement of the left lesser trochanter fracture fragment, similar to prior. Redemonstration of a left intramedullary marlene and compression screw. Cortical screw in the distal femoral shaft again appears broken as noted on exam of 11/10/2022. XR/XR femur LT 2V IMPRESSION: Redemonstration of fracture of the distal cortical screw in the distal femoral shaft. Redemonstration of healing fracture of the left intertrochanteric/subtrochanteric region and proximal femoral shaft with displacement of the left lesser trochanter fracture fragment, similar to prior. Advanced degenerative changes in the left hip.
--- NOTE | ~2023-08-17 | XR_ITS ---
EXAMINATION: AP PELVIS AND LEFT FEMUR X-RAYS CLINICAL INFORMATION: Pain in unspecified hip. COMPARISON: 02/16/2023, 11/10/2022 and 09/21/2022 radiographs. TECHNIQUE: AP view of the pelvis. 2 lateral and 3 AP views of the left hip. FINDINGS: Degenerative changes with levoscoliosis in the imaged lower lumbar spine. Moderate degenerative changes in the bilateral sacroiliac joints. Redemonstration of advanced degenerative changes on single AP view of the right hip. Advanced degenerative changes in the left hip. Redemonstration of healing fracture of the left intertrochanteric/subtrochanteric region and proximal femoral shaft with displacement of the left lesser trochanter fracture fragment, similar to prior. Redemonstration of a left intramedullary marlene and compression screw. Cortical screw in the distal femoral shaft again appears broken as noted on exam of 11/10/2022. XR/XR pelvis 1-2V IMPRESSION: Redemonstration of fracture of the distal cortical screw in the distal femoral shaft. Redemonstration of healing fracture of the left intertrochanteric/subtrochanteric region and proximal femoral shaft with displacement of the left lesser trochanter fracture fragment, similar to prior. Advanced degenerative changes in the left hip.
== END 2023-08-17 08:04 | disposition home or self-care (01) ==
LOC: HO.HOSX 08:03
PROVIDERS: Visit Provider Orthopaedic Surgery
DX: S72.342D Displaced spiral fracture of shaft of left femur, subsequent encounter for closed fracture with routine healing (principal); M16.12 Unilateral primary osteoarthritis, left hip; X58.XXXD Exposure to other specified factors, subsequent encounter
CPT/HCPCS: 72170; 73552; 99212

== ENCOUNTER 2023-08-17 09:33 | Outpatient (AMB) | payer MEDICARE, SELFPAY ==
[2023-08-17 09:46] VITALS: BMI 25.8
--- NOTE | 2023-08-17 09:46 | MHC.OFFVIS ---
Intake Vital Signs 08/17/23 09:46 Height 5 ft 7 in Weight 165 lb BMI 25.8 Intake Visit Reasons: OV- IMN left femur, 08/17/22 NE-follow up Intake Note: Donna is a 77 year old female who presents today for a post operative appointment s/p Left Femur IMN 08/17/22. At her last appointment she was instructed to continue cane use and is continuing home exercise program. States she is doing well. Allergies No Known Allergies Allergy (Verified 08/17/23 09:46) HPI OV- IMN left femur, 08/17/22 NE-follow up HPI Details Donna is a 77 year old female who presents today for a post operative appointment s/p Left Femur IMN 08/17/22. At her last appointment she was instructed to continue cane use and is continuing home exercise program. Currently states she is doing well. She does however walk with a cane and does feel intermittent pain and difficulty with daily activities but she feels that it is tolerable. [facility] Medical History Anemia Essential hypertension Osteoporosis Social History Household Members: None Housing: House Do you presently have visiting nurse or other home services: No Alcohol intake: current Alcohol intake frequency: a few times a month Alcohol type: wine Patient Tobacco Use Status: Never used Tobacco e-Cigarette/Vaping Use: Never Used Second Hand Smoke Exposure: No service: No Current occupational status: employed Physical Exam Vital Signs: BMI result Body Mass Index 25.8 Extrem Other: Positive impingement test left hip Antalgic gait No tenderness to palpation Results Reviewed Results Reviewed: I personally reviewed relevant radiographs. Healed intertrochanteric fracture with abundant mature callus. Osteoarthritis of the left hip that is severe. Distally the interlocking screw is broken Assessment & Plan Assessment & Plan (1) Displaced spiral fracture of shaft of left femur, initial encounter for closed fracture: Comment: Left femur IM nailing 08/17/2022 NE Code(s): S72.342A - Displaced spiral fracture of shaft of left femur, initial encounter for closed fracture Plan: This is a 78-year-old woman with left hip osteoarthritis in the setting of prior intertrochanteric hip fracture treated with IM nail. Overall she feels okay at this time but her gait is poor and I worry that the arthritis will continue to worsen. I do think at some point we should remove the hardware in preparation for possibly doing a total hip replacement in the future. I discussed this with her. She will return to see me in 6 months' time. (2) Osteoarthritis of left hip: Code(s): M16.12 - Unilateral primary osteoarthritis, left hip Plan: This is a 78-year-old woman with left hip osteoarthritis in the setting of prior intertrochanteric hip fracture treated with IM nail. Overall she feels okay at this time but her gait is poor and I worry that the arthritis will continue to worsen. I do think at some point we should remove the hardware in preparation for possibly doing a total hip replacement in the future. I discussed this with her. She will return to see me in 6 months' time. Orders: Orders XR pelvis 1-2V Today M25.559 - Pain in unspecified hip XR femur LT 2V Today S72.342A - Displaced spiral fracture of shaft of left femur, initial encounter for closed fracture Coding Level of Care Code Est Pt Level 4 (54673) Diagnoses Displaced spiral fracture of shaft of left femur, initial encounter for closed fracture S72.342A Osteoarthritis of left hip M16.12
== END 2023-08-17 10:12 | disposition home or self-care (01) ==
PROVIDERS: PCP Internal Medicine; Visit Provider Orthopaedic Surgery
DX: S72.142D Displaced intertrochanteric fracture of left femur, subsequent encounter for closed fracture with routine healing (principal); M16.12 Unilateral primary osteoarthritis, left hip
CPT/HCPCS: 99213

== ENCOUNTER 2024-02-29 10:14 | Outpatient (AMB) | payer MEDICARE, SELFPAY ==
--- NOTE | 2024-02-29 10:18 | MHC.OFFVIS ---
Vital Signs 02/29/24 10:23 Height 5 ft 7 in Weight 165 lb BMI 25.8 Intake Visit Reasons: OV- IMN left femur, 08/17/22 Intake Note: Donna is a 77 year old female who presents today for a follow up appointment s/p Left Femur IMN 08/17/22. At her last visit the possibility of JAMIA and EVELYN was discussed. Allergies No Known Allergies Allergy (Verified 08/17/23 09:46) HPI HPI OV- IMN left femur, 08/17/22: Details: Donna is a 77 year old female who presents today for a follow up appointment s/p Left Femur IMN 08/17/22. At her last visit the possibility of JAMIA and EVELYN was discussed. She states she has occasional pain and persistent stiffness. She is still using a cane. 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 [facility] Medical History Anemia Essential hypertension Osteoporosis Social History (Reviewed 08/17/23 @ 09:47 by Jennifer Truong [facility]) Household Members: None Housing: House Do you presently have visiting nurse or other home services: No Alcohol intake: current Alcohol intake frequency: a few times a month Alcohol type: wine Patient Tobacco Use Status: Never used Tobacco e-Cigarette/Vaping Use: Never Used Second Hand Smoke Exposure: No service: No Current occupational status: employed Physical Exam Vital Signs: BMI result Body Mass Index 25.8 Extrem Other: She has restricted internal rotation with mildly positive impingement test and markedly notable Trendelenburg gait Assessment & Plan Assessment & Plan (1) Osteoarthritis of left hip: Code(s): M16.12 - Unilateral primary osteoarthritis, left hip Category: Medical Plan: Left hip osteoarthritis. I recommend removal of hardware prior to arthroplasty. I had a long discussion with her regarding both the posterior and anterior approach in the setting of posttraumatic changes of the abductor insertion as well as some of the risks of both. I do think she should remove the hardware 1st and see how she does but ultimately she would most reliably be helped with hip arthroplasty. (2) Displaced spiral fracture of shaft of left femur, initial encounter for closed fracture: Comment: Left femur IM nailing 08/17/2022 NE Code(s): S72.342A - Displaced spiral fracture of shaft of left femur, initial encounter for closed fracture Category: Medical Plan: I reviewed her preoperative and postoperative x-rays and explained the stiffness secondary to the dinesh fracture bony healing and the displaced fragment of the lesser trochanter and how this is likely restricting her motion. She will contact me if she would like to have the hardware removed Coding Level of Care Code Est Pt Level 4 (79325) Diagnoses Osteoarthritis of left hip M16.12 Displaced spiral fracture of shaft of left femur, initial encounter for closed fracture S72.342A
[2024-02-29 10:23] VITALS: BMI 25.8
== END 2024-02-29 11:54 | disposition home or self-care (01) ==
PROVIDERS: PCP Internal Medicine; Visit Provider Orthopaedic Surgery
DX: M16.12 Unilateral primary osteoarthritis, left hip (principal); S72.342D Displaced spiral fracture of shaft of left femur, subsequent encounter for closed fracture with routine healing
CPT/HCPCS: 99214

== ENCOUNTER → 2024-02-29 10:14 | Outpatient (BNVA) | payer MEDICARE, SELFPAY | PROVIDERS: PCP Internal Medicine; Visit Provider Orthopaedic Surgery | DX: M16.12 Unilateral primary osteoarthritis, left hip (principal); S72.342D Displaced spiral fracture of shaft of left femur, subsequent encounter for closed fracture with routine healing; X58.XXXD Exposure to other specified factors, subsequent encounter; Z98.890 Other specified postprocedural states | CPT/HCPCS: 99212 ==

== ENCOUNTER 2024-10-10 09:40 | Outpatient (AMB) | payer MEDICARE, SELFPAY ==
[2024-10-10 08:39] VITALS: BP 128/76; PULSE 79; TEMP 36.3; O2SAT 98; BMI 24.6
--- NOTE | 2024-10-10 08:39 | A.OFFPC_ITS ---
Vital Signs 10/10/24 08:39 Height 5 ft 7 in Weight 157 lb BMI 24.6 BP 128/76 Blood Pressure Location Lt brachial Position Sitting Pulse 79 Pulse Source Pulse Oximeter Temp 97.3 F Temp Source Axillary Pulse Oximetry (%) 98 Oxygen Delivery Method Room Air Intake Visit Reasons: Routine Digital Coordinator Required: No Accompanied by: Self / Same As Patient Allergies No Known Allergies Allergy (Verified 10/10/24 08:40) Tobacco use date assessed: 10/10/24 Fall risk assessment: No Falls in past year Last assessed Fall Risk: 10/10/24 Dental Screening Dental Screen Date: 10/10/24 Did you have a dental visit in the last 12 months?: Yes Did you have a dental problem in the last 6 months where you did not have access to dental care?: No HPI HPI Comments History of Present Illness Details The patient is a 79 year old female with a past medical history of hypertension, goiter, hyperlipidemia, osteoporosis, allergies, osteoporosis presenting for follow up HTN-On lisinopril 10mg daily. 128/76. Denies chest pain, dizziness. Osteoporosis-Following with Dr Ronaldo Nieves. On calcium and vitamin D Dental abscess currently on 10 day of augmentin Mammogram 05/30/2024 Colonoscopy 12/08/2022 -[facility] ROS CONSTITUTIONAL: Denies weight loss, fever and chills. HEENT: Denies changes in vision and hearing. RESPIRATORY: Denies SOB and cough. CV: Denies palpitations and CP GI: Denies abdominal pain, nausea, vomiting and diarrhea. : Denies dysuria and urinary frequency. MSK: Denies new myalgia and joint pain. SKIN: Denies rash and pruritus. NEUROLOGICAL: Denies headache PSYCHIATRIC: Denies recent changes in mood. PHYSICAL EXAM: GENERAL: Alert and oriented x 3. NAD EYES: EOMI. Anicteric. HENT: Moist mucous membranes. No scleral icterus. No cervical lymphadenopathy. LUNGS: Clear to auscultation bilaterally. CARDIOVASCULAR: Regular rate and rhythm. No murmur. No JVD. ABDOMEN: Soft, non-tender +bs EXTREMITIES: No edema. Non-tender. SKIN: No rashes or lesions. Warm. NEUROLOGIC: No focal neurological deficits. CN II-XII grossly intact PSYCHIATRIC: Cooperative. Appropriate mood and affect [facility] Medical History Essential hypertension Anemia Osteoporosis Family History Mother No problems noted. Father No problems noted. Social History Household Members: None Housing: House Do you presently have visiting nurse or other home services: No Alcohol intake: current Alcohol intake frequency: a few times a month Alcohol type: wine Patient Tobacco Use Status: Never used Tobacco e-Cigarette/Vaping Use: Never Used Second Hand Smoke Exposure: No service: No Current occupational status: employed and retired Cognitive needs: Yes (cane) Hearing needs: No Vision needs: Yes (rx glasses) Questionnaire PHQ-9 Over the last 2 weeks, how often have you been bothered by any of the following problems? 1. Little interest or pleasure in doing things: not at all 2. Feeling down, depressed, or hopeless: not at all 3. Trouble falling or staying asleep, or sleeping too much: not at all 4. Feeling tired or having little energy: not at all 5. Poor appetite or overeating: not at all 6. Feeling bad about yourself - or that you are a failure or have let yourself or your family down: not at all 7. Trouble concentrating on things, such as reading the newspaper or watching television: not at all 8. Moving or speaking so slowly that other people could have noticed. Or the opposite - being so fidgety or restless that you have been moving around a lot more than usual: not at all 9. Thoughts that you would be better off or of hurting yourself in some way: not at all Total score: 0 Depression Screening Interpretation: Negative Depression Screening Done: Yes 89244 - PHQ-9 Billing: Yes Source: Developed by Drs. Deandre Marx, Verenice Lao, Jerad Davies and colleagues, with an educational elton from [employer]. Thrive Questionnaire Date Thrive assessed: 10/10/24 I am a: Patient Within the past 12 months, did the food you bought not last and you didn't have the money to get more?: Never true Within the past 12 months, did you worry whether your food would run out before you got money to buy more?: Never true Do you have trouble paying for medicines?: No Do you have trouble getting transportation to medical appointments?: No Do you have trouble paying your heating and electricity bill?: No Do you have trouble taking care of your child, family member or friend?: No Do you have trouble with day-to-day activities such as bathing, preparing meals, shopping, managing finances, etc.?: No Are you currently unemployed and looking for a job?: No Are you interested in more education?: No THRIVE Score: 0 AUDIT C Alcohol Use Questionnaire (AUDIT-C) 1. How often do you have a drink containing alcohol?: Monthly or less 2. How many drinks containing alcohol do you have on a typical day when you are drinking?: 1 or 2 3. How often do you have six or more drinks on one occasion?: Less than monthly Total Score: 2 ESHA-7 AMB Questionnaire ESHA-7 Date ESHA - 7 assessed: 10/10/24 Feeling nervous, anxious, or on edge: 0 = Not at all Not being able to stop or control worryin = Not at all Worrying too much about different things: 0 = Not at all Trouble relaxin = Not at all Being so restless that it is hard to sit still: 0 = Not at all Becoming easily annoyed or irritable: 0 = Not at all Feeling afraid as if something awful might happen: 0 = Not at all Total ESHA-7 score (0-4 normal; 5-9 mild; 10-14 moderate; 15-21 severe): 0 Source: Developed by Drs. Deandre Marx, Verenice Lao, Jerad Davies and colleagues, with an educational elton from [employer]. Physical exam (Primary Care) Vital Signs: Last Vital Signs Temp 97.3 F 10/10/24 08:39 Pulse 79 10/10/24 08:39 BP 128/76 10/10/24 08:39 Pulse Ox 98 10/10/24 08:39 Oxygen Delivery Method Room Air 10/10/24 08:39 BMI result Body Mass Index 24.6 Tobacco/Smoking Status: Tobacco use Status Tobacco use date assessed 10/10/24 10/10/24 08:41 Patient Tobacco Use Status Never used Tobacco 10/10/24 08:41 e-Cigarette/Vaping Use Never Used 10/10/24 08:41 PHQ-9: PHQ-9 Score PHQ-9: Total score 0 10/10/24 12:45 Depression Screening Interpretation: Negative Thrive Assessment: Date of Thrive Assessment Date Thrive assessed 10/10/24 10/10/24 08:41 Coding Level of Care Code New Pt Level 4 (01323) Diagnoses Essential hypertension I10 Hyperlipidemia, unspecified hyperlipidemia type E78.5 Hyperlipidemia type: unspecified Osteoporosis, unspecified osteoporosis type, unspecified pathological fracture presence M81.0 Osteoporosis type: unspecified Presence of current pathological fracture: unspecified Additional Codes PHQ-9 - 08033 - PHQ-9 Billing: Yes ([id number]) Assessment & Plan Assessment & Plan (1) Essential hypertension: Code(s): I10 - Essential (primary) hypertension Category: Medical (2) Hyperlipidemia: Code(s): E78.5 - Hyperlipidemia, unspecified Category: Medical Qualifiers: Hyperlipidemia type: unspecified Qualified Code(s): E78.5 - Hyperl ipidemia, unspecified (3) Osteoporosis: Code(s): M81.0 - Age-related osteoporosis without current pathological fracture Category: Medical Qualifiers: Osteoporosis type: unspecified Presence of current pathological fracture: unspecified Qualified Code(s): M81.0 - Age-related osteoporosis without current pathological fracture Plan 79 yo to establish care past medical, surgical, social reviewed HTN-stable on current medications Labs ordered Orders: Orders 2 Complete Blood Count Auto Diff 5 Months E04.9 - Nontoxic goiter, unspecified, E78.5 - Hyperlipidemia, unspecified, I10 - Essential (primary) hypertension Lipid Panel 5 Months E04.9 - Nontoxic goiter, unspecified, E78.5 - Hyperlipidemia, unspecified, I10 - Essential (primary) hypertension Comprehensive Met. Panel 5 Months E04.9 - Nontoxic goiter, unspecified, E78.5 - Hyperlipidemia, unspecified, I10 - Essential (primary) hypertension
--- OUTSIDE RECORDS SUMMARY | 2024-10-10 10:01 | XMS_ITS | Continuity of Care Document ---
Author Organization [facility] [address] [place] [address] Phone [phone] Care Team Providers Care Derrickman Helper Name Role Phone Reyna Kelley M.D. Care Team Information Steeping Press Tender [phone] Problems Active Problems Provider Date Non-toxic multinodular goiter Cynthia guerrero M.D. Onset: 12/16/2021 Postmenopausal osteoporosis Cynthia reyna M.D. Onset: 12/16/2021 Osteoporotic fracture of sac ral vertebra Cynthia Nelson M.D. Onset: 12/16/2021 Closed fracture of distal fibula Cynthia Calvillo M.D. Onset: 12/16/2021 Essential hypertension Wallace Pérez Onset: 12/24/2022 Spinal stenosis of lumbar region Cynthia Calvillo M.D. Onset: 12/24/2022 Osteoarthritis Cynthia Nelson M.D. 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 12/16/2021 Vitamin [id number] (2000 Ut) Capsules 1 by mouth every day Cynthia Nelson M.D. 12/16/2021 [id number] Tablets Take one tablet daily Dave Girard M.D. Ibuprofen [id number] Tablets 1 a day as needed Cynthia Nelson M.D. Wvqqdcv594hy/1.17ML Soln Prefill Syringe inject 2 syringes under the skin once every month for a total dose of 210 mg 7.02ml Cynthia Nelson M.D. Vital Signs Date Vital Result Comment 09/26/2024 3:28pm BP Systolic 118 mmHg BP Diastolic 80 mmHg Heart Rate 85 /min Height 66 inches 5'6 Weight 155.12 lb BMI (Body Mass Index) 25.0 kg/m2 Results Test Acquired Date Facility Test Result H/L Range Note Albumin 09/26/2024 [facility] Albumin <pending> Creatinine 09/26/2024 [facility] Creatinine <pending> Calcium 09/26/2024 [facility] Calcium <pending> Calcium 05/23/2024 [facility] Calcium 10.3 mg/dL 8.7-10.3 Vitamin D, 25-Hydroxy 05/23/2024 [facility] Vitamin D, 25-Hydroxy 38.4 ng/mL 30.0-100 .0 1 Albumin 05/23/2024 [facility] Albumin 4.4 g/dL 3.8-4.8 TSH Rfx on Abnormal to Free T4 11/23/2023 [facility] TSH Rfx on Abnormal to Free T4 1.620 uIU/mL 0.450-4. 500 Vitamin D, 25-Hydroxy 11/23/2023 [facility] Vitamin D, 25-Hydroxy 41.0 ng/mL 30.0-100 .0 2 CBC With Differential/Plat elet 11/23/2023 [facility] WBC 7.0 x10E3/uL 3.4-10.8 RBC 4.94 x10E6/uL 3.77-5.2 8 Hemoglobin 14.8 g/dL 11.1-15. 9 Hematocrit 45.3 % 34.0-46. 6 MCV 92 fL 79-97 MCH 30.0 pg 26.6-33. 0 MCHC 32.7 g/dL 31.5-35. 7 RDW 12.8 % 11.7-15. 4 Platelets 271 x10E3/uL 150-450 Neutrophils 69 % Not Estab. Lymphs 22 % Not Estab. Monocytes 7 % Not Estab. Eos 2 % Not Estab. Basos 0 % Not Estab. Immature Cells TNP Neutrophils (Absolute) 4.8 x10E3/uL 1.4-7.0 Lymphs (Absolute) 1.6 x10E3/uL 0.7-3.1 Monocytes(Absol u te) 0.5 x10E3/uL 0.1-0.9 Eos (Absolute) 0.2 x10E3/uL 0.0-0.4 Baso (Absolute) 0.0 x10E3/uL 0.0-0.2 Immature Granulocytes 0 % Not Estab. Immature Grans (Abs) 0.0 x10E3/uL 0.0-0.1 NRBC TNP Hematology Comments: TNP Comp. Metabolic Panel (14) 11/23/2023 [facility] Glucose 104 mg/dL High 70-99 BUN 16 mg/dL 8-27 Creatinine 0.69 mg/dL 0.57-1.0 0 eGFR 89 mL/min/1. 73 >59 BUN/Creatinine Ratio 23 12-28 Sodium 139 mmol/L 134-144 Potassium 4.5 mmol/L 3.5-5.2 Chloride 103 mmol/L 96-106 Carbon Dioxide, Total 22 mmol/L 20-29 Calcium 10.3 mg/dL 8.7-10.3 Protein, Total 6.7 g/dL 6.0-8.5 Albumin 4.4 g/dL 3.8-4.8 Globulin, Total 2.3 g/dL 1.5-4.5 Bilirubin, Total 0.4 mg/dL 0.0-1 .2 Alkaline Phosphatase 80 IU/L 44-121 Ast (Sgot) 14 IU/L 0-40 Alt (SGPT) 13 IU/L 0-32 TSH With Reflex To FT4 12/22/2022 [facility] TSH With Reflex To FT4 1.67 uIU/mL (0.4-4.2 ) Basic Metabolic Panel 12/22/2022 [facility] Glucose 123 mg/dL High (70-99) BUN 18 mg/dL (8-23) Creatinine 0.6 mg/dL (0.5-1.0 ) Sodium 140 mmol/L (133-145 ) Potassium 4.4 mmol/L (3.6-5.2 ) Chloride 105 mmol/L (98-107) Bicarbonate 25 mmol/L (22-29) Anion Gap 10 (4-17) Calcium 10.1 mg/dL (8.6-10. 5) Estimated GFR Creatinine 92 ML/MIN/1. 73M2 3 25Oh Vitamin D 12/22/2022 [facility] 25Oh Vitamin D 33.8 NG/ML (20-50) Albumin 12/22/2022 [facility] Albumin 4.3 GM/DL (3.4-4.8 ) PTH, Intact 12/22/2022 [facility] PTH, Intact 63 pg/mL (15-65) Comprehensive Metabolic Panl 06/23/2022 [facility] Glucose 98 mg/dL (70-99) BUN 22 mg/dL (8-23) Creatinine 0.7 mg/dL (0.5-1.0 ) Sodium 141 mmol/L (133-145 ) Potassium 5.0 mmol/L (3.6-5.2 ) Chloride 104 mmol/L (98-107) Bicarbonate 28 mmol/L (22-29) Anion Gap 9 (4-17) Albumin 4.7 GM/DL (3.4-4.8 ) Calcium 10.7 mg/dL High (8.6-10. 5) Bilirubin,Total 0.4 mg/dL (0-1.2 ) Total Protein 7.1 GM/DL (6.2-8.2 ) Ag Ratio 2.0 Ast 17 U/L (0-32) Alk Phos 68 U/L (35-104) Alt 16 U/L (0-33) Estimated GFR Creatinine 90 ML/MIN/1. 73M2 4 Complete Abc With Diff 06/23/2022 [facility] WBC 7.9 K/MM3 (4.0-11. 0) RBC 5.22 M/MM3 (4.20-5. 40) HGB 15.3 GM/DL (11.7-15 .5) HCT 50.3 % High (35.7-45 .8) MCV 96.4 FL (80.0-10 0.0) MCH 29.3 pg (27.0-34 .0) MCHC 30.4 g/dL Low (33.0-37 .0) PLT 279 K/MM3 (150-460 ) RDW-SD 48.1 FL High (<47.0) MPV 11.2 FL (9.4-12. 4) Automated NRBC 0.0 #/100WBC' S Abs. NRBC 0.0 K/MM3 Neut # 5.4 K/MM3 (1.3-7.0 ) Lymph # 1.6 K/MM3 (0.8-3.1 ) Meriwether# 0.7 K/MM3 (0.4-0.9 ) Eo # 0.3 K/MM3 (0.0-0.4 ) Baso # 0.0 K/MM3 (0.0-0.1 ) Abs. Imm Gran 0.0 K/MM3 Neut 67.9 % (44-76) Lymph 19.9 % (15-43) Monocyte 8.4 % (4.5-10. 5) Eo 3.2 % (0-6) Baso 0.3 % (0-2) Imm Gran 0.3 % TSH With Reflex To FT4 06/23/2022 [facility] TSH With Reflex To FT4 1.81 uIU/mL (0.4-4.2 ) 25Oh Vitamin D 06/23/2022 [facility] 25Oh Vitamin D 35.3 NG/ML (20-50) 1 Vitamin D deficiency has been defined by the [place] of Medicine and an Endocrine Society practice guideline as a level of serum 25-OH vitamin D less than 20 ng/mL (1,2). The Endocrine Society went on to further define vitamin D insufficiency as a level between 21 and 29 ng/mL (2). 1. IOM ([place] of Medicine). 2010. Dietary reference intakes for calcium and D. [place]: The National Academies Press. 2. Marlyn MF, Garrick NC, Casimiro MCDOWELL, et al. Evaluation, treatment, and prevention of vitamin D deficiency: an Endocrine Society clinical practice guideline. JCEM. 2010; 96(7):1911-30. 2 Vitamin D deficiency has been defined by the [place] of Medicine and an Endocrine Society practice guideline as a level of serum 25-OH vitamin D less than 20 ng/mL (1,2). The Endocrine Society went on to further define vitamin D insufficiency as a level between 21 and 29 ng/mL (2). 1. IOM ([place] of Medicine). 2010. Dietary reference intakes for calcium and D. [place]: The National Academies Press. 2. Marlyn MF, Garrick LARKIN, Casimiro MCDOWELL, et al. Evaluation, treatment, and prevention of vitamin D deficiency: an Endocrine Society clinical practice guideline. JCEM. 2010; 96(7):1911-30. 3 Creatinine based est imated glomerular filtration (eGFR) in adults is calculated using the National Kidney Foundation recommended 2020 CKD-EPI equation. Estimates GFR from serum creatinine, age and sex. 4 Creatinine based est imated glomerular filtration (eGFR) in adults is calculated using the National Kidney Foundation recommended 2020 CKD-EPI equation. Estimates GFR from serum creatinine, age and sex. Procedures Date Code Description Status 05/23/2024 35552 Collection Of Venous Blood B y Venipuncture Completed 11/23/2023 65008 Collection Of Venous Blood B y Venipuncture Completed 12/22/2022 88057 Collection Of Venous Blood B y Venipuncture Completed 06/23/2022 49503 Collection Of Venous Blood B y Venipuncture Completed Medical Devices Description No Information Available Encounters Type Date Location Provider Dx Diagnosis Office Visit 09/26/2024 3:15p Main Office Cynthia Nelson M.D. M81.0 Age-related osteoporosis w/o current pathological fracture E04.2 Nontoxic multinodula r goiter Z87.310 Personal history of (healed) osteoporosis fracture Assessments Date Code Description Provider 09/26/2024 M81.0 Age-related oste oporosis without current pathological fracture Cynthia Nelson M.D. 09/26/2024 E04.2 Nontoxic multinodular goiter Cynthia Nelson M.D. 09/26/2024 Z87.310 Personal history of (healed) osteoporosis fracture Cynthia Nelson M.D. Plan of Treatment Future Appointment(s):* 04/03/2025 2:30 pm - Cynthia Nelson M.D. at Main Office 06/23/2022 - Cynthia Nelson M.D.* E04.2 Nontoxic multinodular goiter * M81.0 Age-related osteoporosis without current pathological fracture* New Xrays:* Ultrasound Thyroid, Scheduled: 06/30/22 Functional Status Description No Information Available Mental Status Description No Information Available Referrals Description No Information Available
--- OUTSIDE RECORDS SUMMARY | 2024-10-10 10:01 | XMS_ITS | Patient Health Record ---
Author Organization [facility] Address [address] [place] [address] Care Team Providers Care Senior Network Engineer Name Role Phone LALO OLIVEIRA M.D. Primary Care Provider Lanrea Alexandria Granda Unavailable [phone] Allergies No Known Allergies Reason For Referral No Information Medications Medication SIG (Take, Route, Frequency, Duration) Notes Start Date End Date Status Lisinopril 10 MG 1 tablet Orally Once a day Emmanuel-MJ 2011 Active Calcium 1 tab Oral for 14 days Active Multi-Vitamin - 1 tablet Orally Once a day for 30 day(s) Active Alendronate Sodium 70 MG Oral for 84 Active Social History Tobacco Use: Social History Observation Description Date Details (start date - stop date) Never Smoker NA - NA Tobacco Use/Smoking Question Answer Notes Are you a nonsmoker Alcohol Screen (Audit-C) Question Answer Notes Did you have a drink containing alcohol in the p ast year? No Points 0 Interpretation Negative Sexual History Question Answer Notes Had sex in the past 12 months (vaginal, oral, or anal)? No Have you ever had a Sexually transmitted disease ? No Problems Problem Type SNOMED Code ICD Code Onset Dates Problem Status W/U Status Risk Notes Problem Postmenopausal atrophic vaginitis (90458645) Postmenopausal atrophic vaginitis (N95.2) Active confirmed Problem Age-related osteoporosis (215229608) Age-related osteoporosis without current pathological fracture (M81.0) Active confirmed Problem Osteoarthritis (121800022) Unspecified osteoarthritis, unspecified site (M19.90) Active confirmed Problem Hypothyroidism (49430877) Unspecified hypothyroidism (244.9) Active confirmed Major Problem Essential hypertension (45840754) Unspecified essential hypertension (401.9) Active confirmed Major Problem Esophageal reflux (304996628) Esophageal reflux (530.81) Active confirmed Major Problem Menopausal symptom (61871419) Symptomatic menopausal or female climacteric states (627.2) Active confirmed Major Problem Gynecological examination normal (997322272320427) Routine gynecological examination (V72.31) Active confirmed Major Problem Screening for malignant neoplasm of colon (159703295) Special screening for malignant neoplasms, colon (V76.51) Active confirmed Major Plan Of Treatment Pending Test Test Name Order Date MAMMOGRAM, SCREENING 11/28/2019 MAMMOGRAM, SCREENING 08/04/2022 BONE DENSITY 08/04/2022 MM Digital Mammo Screening 11/28/2019 MM Digital Mammo Screening 08/04/2022 Next Appt Details Provider Name:Alexandria Gilbert kane, 12/26/2024 10:40:00 AM, [address], [address], [place], [address], Insurance Providers Payer Name Payer Address Payer Phone Subscriber Number Group Number Insured Name Patient Relationship to Insured Coverage Start Date Coverage End Date [employer] [facility] [address] [place] [address] [id number] LAURENT MORALES Self - patient is the insured Medical (General) History Medical History History ICD Code Hypothyroidism, unspecified E03.9 Essential (primary) hypertension I10 Gastro-esophageal reflux disease without esophagitis K21.9 Menopausal and female climacteric states N95.1 Age-related osteoporosis without current pathological fracture M81.0 Postmenopausal atrophic vaginitis N95.2 Disorder of bone density and structure, unspecified M85.9 Unspecified osteoarthritis, unspecified site M19.90 Surgical History Surgery Date(Month/Year) Colonoscopy Spinal Surgery TEA/BSO 09/1991 Tonsillectomy/Adnoidectomy L5-S1 Disection 05/1992 Hospitalization History Reason Date(Month/Year) See Surgical Hx Fractured Sacrum
== END 2024-10-10 10:30 | disposition home or self-care (01) ==
LOC: HO.HMCHD 09:41
PROVIDERS: PCP Internal Medicine; Visit Provider Internal Medicine
DX: I10 Essential (primary) hypertension (principal); E78.5 Hyperlipidemia, unspecified; M81.0 Age-related osteoporosis without current pathological fracture

== ENCOUNTER → 2024-10-10 09:40 | Outpatient (BNVA) | payer MEDICARE, SELFPAY | PROVIDERS: PCP Internal Medicine; Visit Provider Internal Medicine | DX: I10 Essential (primary) hypertension (principal); E04.9 Nontoxic goiter, unspecified; E78.5 Hyperlipidemia, unspecified; M81.0 Age-related osteoporosis without current pathological fracture | CPT/HCPCS: 96127; 99202 ==

== ENCOUNTER 2025-03-06 10:16 | Outpatient (AMB) | payer MEDICARE, SELFPAY ==
[2025-03-06 08:37] VITALS: BP 128/80; PULSE 77; TEMP 36.1; O2SAT 98; BMI 25.2
--- NOTE | 2025-03-06 08:37 | A.OFFPC_ITS ---
Vital Signs 03/06/25 08:37 Height 5 ft 7 in Weight 73.028 kg BMI 25.2 BP 128/80 Blood Pressure Location Lt brachial Position Sitting Pulse 77 Pulse Source Pulse Oximeter Temp 97 F Temp Source Temporal Artery Scan Pulse Oximetry (%) 98 Oxygen Delivery Method Room Air Intake Visit Reasons: Routine Graphic Designer Required: No Accompanied by: Self / Same As Patient Allergies No Known Allergies Allergy (Verified 03/06/25 08:37) Medication List - Last Reconciled 03/06/25 by FERNANDO Arriaga calcium carbonate-vitamin D3 600 mg-5 mcg (200 unit) 1 tab PO DAILY lisinopril 10 mg PO DAILY Tobacco use date assessed: 03/06/25 Fall risk assessment: No Falls in past year Last assessed Fall Risk: 03/06/25 Dental Screening Dental Screen Date: 03/06/25 Did you have a dental visit in the last 12 months?: Yes Did you have a dental problem in the last 6 months where you did not have access to dental care?: No HPI HPI Comments History of Present Illness Details 71-year-old female with history of hyper lipidemia, hypertension, osteoarthritis, osteoporosis, history of left femur fracture presenting to the office today for follow-up. Previously seen by Dr. Snider Osteoarthritis left hip/history of displaced spiral fracture of the shaft of the left femur-following now with Dr. Lopez at [facility], considering [facility]. Currently ambulating with a cane. Not overly painful, occasionally using ibuprofen. Does have a limp requiring use of cane. 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 Blood pressure 120/80 Hyperlipidemia-not on statin Osteoporosis-following with endocrinology and DEXA scan up-to-date, Anitha Concerns: None Health maintenance: Last mammogram 05/2024 with 1 year follow-up advised PRN colonoscopies DEXA scans [facility], up-to-date per patient ROS: See HPI EXAM: Constitutional - Awake and Alert, No apparent distress Eyes - PERRL Cardiovascular - S1S2, RRR, No edema Respiratory - Normal lung expansion, Normal respiratory effort, No respiratory distress, CTA bilaterally Extremities - no calf tenderness bilaterally, no swelling Skin - Warm/Dry Neurological - Alert & oriented x3 Psychological - Appropriate affect PFSH Medical History Essential hypertension Anemia Osteoporosis Surgical History History of colonoscopy (~10/27/11) Family History Mother No problems noted. Father No problems noted. Social History Household Members: None Housing: House Do you presently have visiting nurse or other home services: No Alcohol intake: current Alcohol intake frequency: a few times a month Alcohol type: wine Patient Tobacco Use Status: Never used Tobacco e-Cigarette/Vaping Use: Never Used Second Hand Smoke Exposure: No service: No Current occupational status: employed and retired Cognitive needs: Yes (cane) Hearing needs: No Vision needs: Yes (rx glasses) Questionnaire PHQ-9 Over the last 2 weeks, how often have you been bothered by any of the following problems? 1. Little interest or pleasure in doing things: not at all 2. Feeling down, depressed, or hopeless: not at all 3. Trouble falling or staying asleep, or sleeping too much: not at all 4. Feeling tired or having little energy: not at all 5. Poor appetite or overeating: not at all 6. Feeling bad about yourself - or that you are a failure or have let yourself or your family down: not at all 7. Trouble concentrating on things, such as reading the newspaper or watching television: not at all 8. Moving or speaking so slowly that other people could have noticed. Or the opposite - being so fidgety or restless that you have been moving around a lot more than usual: not at all 9. Thoughts that you would be better off or of hurting yourself in some way: not at all Total score: 0 Source: Developed by Drs. Deandre Marx, Verenice Lao, Jerad Davies and colleagues, with an educational elton from [employer]. Thrive Questionnaire Date Thrive assessed: 03/06/25 I am a: Patient Within the past 12 months, did the food you bought not last and you didn't have the money to get more?: Never true Within the past 12 months, did you worry whether your food would run out before you got money to buy more?: Never true Do you have trouble paying for medicines?: No Do you have trouble getting transportation to medical appointments?: No Do you have trouble paying your heating and electricity bill?: No Do you have trouble taking care of your child, family member or friend?: No Do you have trouble with day-to-day activities such as bathing, preparing meals, shopping, managing finances, etc.?: No Are you currently unemployed and looking for a job?: No Are you interested in more education?: No THRIVE Score: 0 AUDIT C Alcohol Use Questionnaire (AUDIT-C) 1. How often do you have a drink containing alcohol?: Monthly or less 2. How many drinks containing alcohol do you have on a typical day when you are drinking?: 1 or 2 3. How often do you have six or more drinks on one occasion?: Less than monthly Total Score: 2 ESHA-7 AMB Questionnaire ESHA-7 Date ESHA - 7 assessed: 03/06/25 Feeling nervous, anxious, or on edge: 0 = Not at all Not being able to stop or control worryin = Not at all Worrying too much about different things: 0 = Not at all Trouble relaxin = Not at all Being so restless that it is hard to sit still: 0 = Not at all Becoming easily annoyed or irritable: 0 = Not at all Feeling afraid as if something awful might happen: 0 = Not at all Total ESHA-7 score (0-4 normal; 5-9 mild; 10-14 moderate; 15-21 severe): 0 Source: Developed by Drs. Deandre Marx, Verenice Lao, Jerad Davies and colleagues, with an educational elton from [employer]. Physical exam (Primary Care) Vital Signs: Last Vital Signs Temp 97 F 03/06/25 08:37 Pulse 77 03/06/25 08:37 BP 128/80 03/06/25 08:37 Pulse Ox 98 03/06/25 08:37 Oxygen Delivery Method Room Air 03/06/25 08:37 BMI result Body Mass Index 25.2 Tobacco/Smoking Status: Tobacco use Status Tobacco use date assessed 03/06/25 03/06/25 08:38 Patient Tobacco Use Status Never used Tobacco 03/06/25 08:38 e-Cigarette/Vaping Use Never Used 03/06/25 08:38 PHQ-9: PHQ-9 Score PHQ-9: Total score 0 03/06/25 10:23 Thrive Assessment: Date of Thrive Assessment Date Thrive assessed 03/06/25 03/06/25 08:38 Coding Level of Care Code Est Pt Level 4 (26809) Complex EM visit Add On G2211 Diagnoses Essential hypertension I10 Hyperlipidemia, unspecified hyperlipidemia type E78.5 Hyperlipidemia type: unspecified Osteoporosis, unspecified osteoporosis type, unspecified pathological fracture presence M81.0 Osteoporosis type: unspecified Presence of current pathological fracture: unspecified Osteoarthritis of left hip M16.12 Assessment & Plan Assessment & Plan (1) Essential hypertension: Code(s): I10 - Essential (primary) hypertension Category: Medical Plan: Controlled. Continue lisinopril (2) Hyperlipidemia: Code(s): E78.5 - Hyperlipidemia, unspecified Category: Medical Qualifiers: Hyperlipidemia type: unspecified Qualified Code(s): E78.5 - Hyperlipidemia, unspecified Plan: Lipid panel ordered. ASCVD risk score to be calculated pending results of study (3) Osteoporosis: Code(s): M81.0 - Age-related osteoporosis without current pathological fracture Category: Medical Qualifiers: Osteoporosis type: unspecified Presence of current pathological fracture: unspecified Qualified Code(s): M81.0 - Age-related osteoporosis without current pathological fracture Plan: Continue calcium and vitamin-D as well as weight-bearing exercise. Follow-up with endocrinology as scheduled (4) Osteoarthritis of left hip: Code(s): M16.12 - Unilateral primary osteoarthritis, left hip Category: Medical Plan: Continue following with [facility], considering [facility]. Referred to physical therapy at her request Plan Follow-up in the office in 6 months for annual exam. Labs to be completed today Orders: Orders Lipid Panel Today E78.5 - Hyperlipidemia, unspecified, I10 - Essential (primary) hypertension, M81.0 - Age-related osteoporosis without current pathological fracture Liver Panel Today E78.5 - Hyperlipidemia, unspecified, I10 - Essential (primary) hypertension, M81.0 - Age-related osteoporosis without current pathological fracture Complete Blood Count Auto Diff Today E78.5 - Hyperlipidemia, unspecified, I10 - Essential (primary) hypertension, M81.0 - Age-related osteoporosis without current pathological fracture PT Evaluation and Treatment Today M16.12 - Unilateral primary osteoarthritis, left hip, S72.342A - Displaced spiral fracture of shaft of left femur, initial encounter for closed fracture Basic Metabolic Panel Today E78.5 - Hyperlipidemia, unspecified, I10 - Essential (primary) hypertension, M81.0 - Age-related osteoporosis without current pathological fracture Medications: Changed From lisinopril 1 tab PO DAILY To lisinopril 10 mg PO DAILY 90 tabs 1RF
--- OUTSIDE RECORDS SUMMARY | 2025-03-06 11:06 | XMS_ITS | Continuity of Care Document ---
Author Organization [facility] [address] [place] [address] Phone [phone] Care Team Providers Care Laboratory Technical Specialist Name Role Phone Reyna Kelley M.D. 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 12/16/2021 Vitamin O489oqe (2000 Ut) Capsules 1 by mouth every day Cynthia Nelson M.D. 12/16/2021 Cxquslxywi84oo Tablets Take one tablet daily Dave Girard M.D. Ibuprofen [id number] Tablets 1 a day as needed Cynthia Nelson M.D. Erzwbod949gp/1.17ML Soln Prefill Syringe inject 2 syringes under [...] Facility Test Result H/L Range Note Albumin 12/09/2024 [facility] Albumin 4.3 g/dL 3.8-4.8 Creatinine 12/09/2024 [facility] Creatinine 0.62 mg/dL 0.57-1.0 0 eGFR 91 mL/min/1. 73 >59 Calcium 12/09/2024 [facility] Calcium 9.7 mg/dL 8.7-10.3 Calcium 09/26/2024 [facility] Calcium <pending> Albumin 09/26/2024 [facility] Albumin <pending> Creatinine 09/26/2024 [facility] Creatinine <pending> Calcium 05/23/2024 [facility] Calcium 10.3 mg/dL 8.7-10.3 Vitamin D, 25-Hydroxy 05/23/2024 [facility] Vitamin D, 25-Hydroxy 38.4 ng/mL 30.0-100 .0 1 Albumin 05/23/2024 [facility] Albumin 4.4 g/dL 3.8-4.8 Vitamin D, 25-Hydroxy 11/23/2023 [facility] Vitamin D, 25-Hydroxy 41.0 ng/mL 30.0-100 .0 2 TSH Rfx on Abnormal to Free T4 11/23/2023 [facility] TSH Rfx on Abnormal to Free T4 1.620 uIU/mL 0.450-4. 500 CBC With Differential/Plat elet 11/23/2023 [facility] WBC [...] 0-32 TSH With Reflex To FT4 12/22/2022 [facility] TSH With Reflex To FT4 1.67 uIU/mL (0.4-4.2 ) Basic Metabolic Panel 12/22/2022 [facility] Glucose 123 mg/dL High (70-99) BUN 18 mg/dL (8-23) Creatinine 0.6 mg/dL (0.5-1.0 ) Sodium 140 mmol/L (133-145 ) Potassium 4.4 mmol/L (3.6-5.2 ) Chloride 105 mmol/L (98-107) Bicarbonate 25 mmol/L (22-29) Anion Gap 10 (4-17) Calcium 10.1 mg/dL (8.6-10. 5) Estimated GFR Creatinine 92 ML/MIN/1. 73M2 3 25Oh Vitamin D 12/22/2022 [facility] 25Oh Vitamin D 33.8 NG/ML (20-50) Albumin 12/22/2022 [facility] Albumin 4.3 GM/DL (3.4-4.8 ) PTH, Intact 12/22/2022 [facility] PTH, Intact 63 pg/mL (15-65) Comprehensive Metabolic Panl 06/23/2022 [facility] Glucose 98 mg/dL (70-99) [...] 73M2 4 Complete Abc With Diff 06/23/2022 [facility] WBC 7.9 K/MM3 (4.0-11. [...] ) Lymph # 1.6 K/MM3 (0.8-3.1 ) [place]# 0.7 K/MM3 (0.4-0.9 ) Eo # 0.3 K/MM3 (0.0-0.4 ) Baso # 0.0 K/MM3 (0.0-0.1 ) Abs. Imm Gran 0.0 K/MM3 Neut 67.9 % (44-76) Lymph 19.9 % (15-43) Monocyte 8.4 % (4.5-10. 5) Eo 3.2 % (0-6) Baso 0.3 % (0-2) Imm Gran 0.3 % TSH With Reflex To FT4 06/23/2022 [facility] TSH With Reflex To FT4 1.81 uIU/mL (0.4-4.2 ) 25Oh Vitamin D 06/23/2022 [facility] 25Oh Vitamin D 35.3 NG/ML (20-50) 1 Vitamin D deficiency has been defined by the [place] of [employer] and an Endocrine Society practice guideline as a level of serum 25-OH vitamin D less than 20 ng/mL (1,2). The Endocrine Society went on to further define vitamin D insufficiency as a level between 21 and 29 ng/mL (2). 1. IOM ([place] of [employer]). 2010. Dietary reference intakes for calcium and D. [place]: The National Academies Press. 2. Marlyn MF, Garrick NC, Casimiro MCDOWELL, et al. Evaluation, treatment, and prevention of vitamin D deficiency: an Endocrine Society clinical practice guideline. JCEM. 2010; 96(7):1911-30. 2 Vitamin D deficiency has been defined by the [place] of [employer] and an Endocrine Society practice guideline as a level of serum 25-OH vitamin D less than 20 ng/mL (1,2). The Endocrine Society went on to further define vitamin D insufficiency as a level between 21 and 29 ng/mL (2). 1. IOM ([place] of [employer]). 2010. Dietary reference intakes for [...] sex. Procedures Date Code Description Status 05/23/2024 28449 Collection Of Venous Blood B y Venipuncture Completed 11/23/2023 23544 Collection Of Venous Blood B y Venipuncture Completed 12/22/2022 18870 Collection Of Venous Blood B y Venipuncture Completed 06/23/2022 82430 Collection Of Venous Blood B y Venipuncture [...]
--- OUTSIDE RECORDS SUMMARY | 2025-03-06 11:06 | XMS_ITS | Patient Health Record ---
Author Organization [facility] Address [address] [place] [address] Care Team Providers Care Operations Research Manager Name Role Phone Era (RETIRED) Dave GRAVES Primary Care Provide r Preston Lira Jr Unavailable Reason For Referral No Information Medications Medication SIG (Take, Route, Fr equency, Duration) Notes Start Date End Date Status hydroCHLOROthiazide Active Omeprazole 06/04/2024 06/04/2024 Active Lisinopril Active Levothyroxine Sodium Active MoviPrep 100 GM as directed before colonoscopy Orally for 1 dose 08/09/2011 06/04/2024 Ac tive Social History Tobacco Use: Social History Observation Description Date Details (start date - stop date) Never Smoker NA - NA Tobacco Use/Smoking Question Answer Notes Patient is a nonsmoker Alcohol Screen Question Answer Notes Did you have a drink contain ing alcohol in the past year? Yes Points 1 Interpretation Negative How often did you have a dri nk containing alcohol in the past year? Monthly or less (1 point) How many drinks did you have on a typical day when you were drinking in the past year? 1 or 2 drinks (0 point) Section Notes: Tobacco use is negative. Alc ohol use is occasional. She works for [employer]. Problems Problem Type SNOMED Code ICD Code Onset Dates Problem Status W/U Status Risk Notes Problem Flatulence, eructation and gas pain (574862195) Flatulence, eructation, and gas pain (787.3) Active confirmed Problem Diarrhea (62713551) Diarrhea (787.91) Active confirmed Plan Of Treatment Future Test Test Name Order Date COLONOSCOPY 08/09/2011 Insurance Providers Payer Name Payer Address Payer Phone Subscriber Number Group Number Insured Name Patient Relationship to Insured Coverage Start Date Coverage End Date [employer] [place] [address] [facility] [place] [phone] [id number] LAURENT MORALES Self - patient is the insured Medical (General) History Medical History History ICD Code thyroid nodules hypertension gastroesophageal reflux disease colonoscopy in October of 2006 Surgical History Surgery Date(Month/Year) total hysterectomy for fibroids lumbar disc surgery
--- OUTSIDE RECORDS SUMMARY | 2025-03-06 11:06 | XMS_ITS | Patient Health Record ---
Author Organization [facility] Address [address] [address] Care Team Providers Care Smoke And Flame Specialist Name Role Phone FAHAD LERENR MD Primary Care Provider Alexandria Sanchez [phone] Allergies No Known Allergies Reason For Referral No Information Medications Medication SIG (Take, Route, Frequency, Duration) Notes Start Date End Date Status Lisinopril 10 MG 1 tablet Orally Once a day Emmanuel-MJ 08/05/2011 Active Calcium 1 tab Oral; Duration : 14 days Active Multi-Vitamin - 1 tablet Orally Once a day; Duration: 30 day(s) Active Prolia Starting Jan 2025 Ac tive Social History Tobacco Use: Social History Observation Description Date Details (start date - stop date) Never Smoker NA - NA Sexual History Question Answer Notes Had sex in the past 12 months (vaginal, oral, or anal)? No Have you ever had a Sexually transmitted disease ? No AUDIT-C (Standard) Question Answer Notes Did you have a drink containing alcohol in the p ast year? No Points 0 Interpretation Negative Tobacco Control (Standard) Question Answer Notes Tobacco use: Nonsmoker Problems Problem Type SNOMED Code ICD Code Onset Dates Problem Status W/U Status Risk Notes Problem Postmenopausal atrophic vaginitis (30804537) Postmenopausal atrophic vaginitis (N95.2) Active confirmed Problem Age-related osteoporosis (651133507) Age-related osteoporosis without current pathological fracture (M81.0) Active confirmed Problem Osteoarthritis (811035030) Unspecified osteoarthritis, unspecified site (M19.90) Active confirmed Problem Hypothyroidism (62479668) Unspecified hypothyroidism (244.9) Active confirmed Major Problem Essential hypertension (43614450) Unspecified essential hypertension (401.9) Active confirmed Major Problem Esophageal reflux (170852194) Esophageal reflux (530.81) Active confirmed Major Problem Menopausal symptom (55269077) Symptomatic menopausal or female climacteric states (627.2) Active confirmed Major Problem Gynecological examination normal (290231001987643) Routine gynecological examination (V72.31) Active confirmed Major Problem Screening for malignant neoplasm of colon (515390018) Special screening for malignant neoplasms, colon (V76.51) Active confirmed Major Vital Signs Temperature 97.4 degrees Fahrenheit 12/26/2024 Blood pressure diastolic 72 mm Hg 12/26/2024 Height 67 in 12/26/2024 Blood pressure systolic 122 mm Hg 12/26/2024 Weight 155 lbs 12/26/2024 BMI 24.27 kg/m2 12/26/2024 Encounters Encounter Location Date Provider Diagnosis [address] [address] 12/26/2024 Alexandria Harris Encounter for gynecological examination (general) (routine) without abnormal findings Z01.419 ; Encounter for screening mammogram for malignant neoplasm of breast Z12.31 ; Age-related osteoporosis without current pathological fracture M81.0 ; Postmenopausal atrophic vaginitis N95.2 and Dense breasts, unspecified R92.30 Assessments Encounter Date Diagnosis (ICD Code) Assessment Notes Treatment Notes Treatment Clinical Notes Section Notes 12/26/2024 Encounter for gynecological examination (general) (routine) without abnormal findings (ICD-10 - Z01.419) NO MORE PAP TESTS. 12/26/2024 Encounter for screening mammogram for malignant neoplasm of breast (ICD-10 - Z12.31) REGULAR MAMMOGRAMS AND SBE'S WERE RECOMMENDED. 12/26/2024 Age-related osteoporosis without current pathological fracture (ICD-10 - M81.0) DISCUSSED HER LAST BMD AND MARKED IMPROVEMENT. ADEQUATE CALCIUM AND VIT D. WEIGHT BEARING EXERCISES. CONITNUE CARE WITH DR NAN PAIZ. REPEAT BMD IN 2025. 12/26/2024 Postmenopausal atrophic vaginitis (ICD-10 - N95.2) DISCUSSED FINDINGS, DX AND TX OPTIONS. PAT IS ASYMPTOMATIC AND REFUSES INTRAVAGINAL ESTROGEN. 12/26/2024 Dense breasts, unspecified (ICD-10 - R92.30) DISCUSSED DENSE BREASTS ON MAMMOGRAM AND ITS IMPLICATIONS. 3D MAMMOGRAMS WERE RECOMMENDED. Plan Of Treatment Pending Test Test Name Order Date MAMMOGRAM, SCREENING 11/28/2019 MAMMOGRAM, SCREENING 08/04/2022 MAMMOGRAM, SCREENING 12/26/2024 BONE DENSITY 08/04/2022 MM Digital Mammo Screening 11/28/2019 MM Digital Mammo Screening 08/04/2022 MM Digital Mammo Screening 12/26/2024 Insurance Providers Payer Name Payer Address Payer Phone Subscriber Number Group Number Insured Name Patient Relationship to Insured Coverage Start Date Coverage End Date [employer] [address] [facility] [place] [id number] LAURENT MORALES Self - patient is the [...] 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
== END 2025-03-06 10:50 | disposition home or self-care (01) ==
LOC: HO.HMCHD 10:16
PROVIDERS: PCP Internal Medicine; Visit Provider Physician Assistant
DX: I10 Essential (primary) hypertension (principal); E78.5 Hyperlipidemia, unspecified; M81.0 Age-related osteoporosis without current pathological fracture; M16.12 Unilateral primary osteoarthritis, left hip

== ENCOUNTER → 2025-03-06 10:16 | Outpatient (BNVA) | payer MEDICARE, SELFPAY | PROVIDERS: PCP Internal Medicine; Visit Provider Physician Assistant | DX: I10 Essential (primary) hypertension (principal); E78.5 Hyperlipidemia, unspecified; M81.0 Age-related osteoporosis without current pathological fracture; M16.12 Unilateral primary osteoarthritis, left hip | CPT/HCPCS: 99212 ==

== ENCOUNTER 2025-04-04 21:18 | Emergency (ER) | payer MEDICARE, SELFPAY ==
[2025-04-04 21:24] VITALS: BP 182/89; PULSE 88; RESP 18; TEMP 36.7; O2SAT 98; BMI 25.8
--- OUTSIDE RECORDS SUMMARY | 2025-04-05 00:28 | XMS_ITS | Continuity of Care Document ---
Author Organization [facility] [address] [place] [address] Phone [phone] Care Team Providers Care Kids Activities Coach Name Role Phone Reyna Kelley M.D. 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 04/03/2025 Vitamin P254uxd (2000 Ut) Capsules 1 by mouth every day Cynthia Nelson M.D. 12/16/2021 Vkyrzlqidm30xd Tablets Take one tablet daily Dave Girard M.D. Ibuprofen 243895fs Tablets 1 a day as needed Cynthia Nelson M.D. Calcium 600 + F559-9xy-qkt Tablets 1 by mouth every day Cynthia Nelson M.D. Vital Signs Date Vital Result Comment 04/03/2025 2:18pm BP Systolic 140 mmHg BP Diastolic 88 mmHg Heart Rate 80 /min Height 66 inches 5'6 Weight 163.38 lb BMI (Body Mass Index) 26.4 kg/m2 Results Test Acquired Date Facility Test [...] 0-32 TSH With Reflex To FT4 12/22/2022 [facility] TSH With Reflex To FT4 1.67 uIU/mL (0.4-4.2 ) Basic Metabolic Panel 12/22/2022 [facility] Glucose 123 mg/dL High (70-99) BUN 18 mg/dL (8-23) Creatinine 0.6 mg/dL (0.5-1.0 ) Sodium 140 mmol/L (133-145 ) Potassium 4.4 mmol/L (3.6-5.2 ) Chloride 105 mmol/L (98-107) Bicarbonate 25 mmol/L (22-29) Anion Gap 10 (4-17) Calcium 10.1 mg/dL (8.6-10. 5) Estimated GFR Creatinine 92 ML/MIN/1. 73M2 3 25Oh Vitamin D 12/22/2022 [facility] 25Oh Vitamin D 33.8 NG/ML (20-50) Albumin 12/22/2022 [facility] Albumin 4.3 GM/DL (3.4-4.8 ) PTH, Intact 12/22/2022 [facility] PTH, Intact 63 pg/mL (15-65) Comprehensive Metabolic Panl 06/23/2022 [facility] Glucose 98 mg/dL [...] 73M2 4 Complete Abc With Diff 06/23/2022 [facility] WBC 7.9 K/MM3 [...] ) Lymph # 1.6 K/MM3 (0.8-3.1 ) [place]# 0.7 K/MM3 (0.4-0.9 ) Eo # 0.3 K/MM3 (0.0-0.4 ) Baso # 0.0 K/MM3 (0.0-0.1 ) Abs. Imm Gran 0.0 K/MM3 Neut 67.9 % (44-76) Lymph 19.9 % (15-43) Monocyte 8.4 % (4.5-10. 5) Eo 3.2 % (0-6) Baso 0.3 % (0-2) Imm Gran 0.3 % TSH With Reflex To FT4 06/23/2022 [facility] TSH With Reflex To FT4 1.81 uIU/mL (0.4-4.2 ) 25Oh Vitamin D 06/23/2022 [facility] 25Oh Vitamin D 35.3 NG/ML (20-50) 1 Vitamin D deficiency has been defined by the [place] of [employer] and an Endocrine Society practice guideline as a level of serum 25-OH vitamin D less than 20 ng/mL (1,2). The Endocrine Society went on to further define vitamin D insufficiency as a level between 21 and 29 ng/mL (2). 1. IOM ([place] of [employer]). 2010. Dietary reference intakes for calcium and D. [place]jee [place]: The National Academies Press. 2. Marlyn RASHID, Garrick LARKIN, Casimiro MCDOWELL, et al. Evaluation, treatment, and prevention of vitamin D deficiency: an Endocrine Society clinical practice guideline. JCEM. 2010; 96(7):1911-30. 2 Vitamin D deficiency has been defined by the [place] of [employer] and an Endocrine Society practice guideline as a level of serum 25-OH vitamin D less than 20 ng/mL (1,2). The Endocrine Society went on to further define vitamin D insufficiency as a level between 21 and 29 ng/mL (2). 1. IOM ([place] of [employer]). 2010. Dietary reference intakes for [...] sex. Procedures Date Code Description Status 05/23/2024 56678 Collection Of Venous Blood B y Venipuncture Completed 11/23/2023 63480 Collection Of Venous Blood B y Venipuncture Completed 12/22/2022 92518 Collection Of Venous Blood B y Venipuncture Completed 06/23/2022 83345 Collection Of Venous Blood B y Venipuncture Completed Medical Devices Description No Information Available Encounters Type Date Location Provider Dx Diagnosis Office Visit 09/26/2024 3:15p Main Office Cynthia Nleson M.D. 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 04/03/2025 Z87.310 Personal history of (healed) osteoporosis fracture Cynthia Nelson M.D. 04/03/2025 E04.2 Nontoxic multinodular goiter Cynthia Nelson M.D. 09/26/2024 M81.0 Age-related oste oporosis without current pathological fracture Cynthia Nelson M.D. 09/26/2024 E04.2 Nontoxic multinodular goiter Cynthia Nelson M.D. 09/26/2024 Z87.310 Personal history of (healed) osteoporosis fracture Cynthia Nelson M.D. Plan of Treatment Future Appointment(s):* 11/27/2025 3:00 pm - Cynthia Nelson M.D. at Main Office 06/23/2022 - Cynthia Nelson M.D.* E04.2 Nontoxic multinodular goiter * M81.0 Age-related osteoporosis without current pathological fracture* New Xrays:* Ultrasound Thyroid, Scheduled: 06/30/22 Functional Status Description No Information Available Mental Status Description No Information Available Referrals Description No Information Available
--- NOTE | 2025-04-05 00:45 | ED_ITS ---
HPI - General Adult General Chief complaint: Skin/Abscess/Foreign Body Stated complaint: tick right upper thigh? Time Seen by Provider: 04/05/25 00:26 Source: patient Mode of arrival: ambulatory Limitations: no limitations History of Present Illness ED Provider: Dr[facility] Beasley [facility] narrative: 79-year-old female presented hospital today for evaluation of Right thigh wound. Patient stated that she had pole with a appears to be a tick off the right thigh. Noticed immediate redness around the right thigh. Related Data Home Medications ?Medication ?Instructions ?Recorded ?Confirmed calcium 600 mg (as 1 tab PO DAILY 08/17/2208/26 carbonate)-vitamin D3 5 mcg (200 unit) tablet Previous Rx's ?Medication ?Instructions ?Recorded lisinopril 10 mg tablet 10 mg PO DAILY #90 tabs 08/26 cephalexin 500 mg capsule 500 mg PO Q8H 7 days #21 cap s 04/05/25 doxycycline hyclate 100 mg capsule 100 mg PO BID 10 da ys #20 caps 04/05/25 Allergies Allergy/AdvReac Type Severity Reaction Status Date / Time No Known Allergies Allergy Verified 04/04/25 21:26 Review of Systems Review of Systems: Pertinent review of systems as mentioned in HPI. All other system otherwise negative. [facility] Past Medical History [facility] Narrative: Hypertension Medical History Essential hypertension Anemia Osteoporosis Surgical History History of colonoscopy (~10/27/11) Family History Family History Mother No problems noted. Father No problems noted. Social History Social History Household Members: None Housing: House Do you presently have visiting nurse or other home services: No Alcohol intake: current Alcohol intake frequency: a few times a month Alcohol type: wine Patient Tobacco Use Status: Never used Tobacco e-Cigarette/Vaping Use: Never Used Second Hand Smoke Exposure: No Advance Directives: No Advance Directives Information Provided: Yes Do you have a plan to hurt others: No Plan service: No Current occupational status: employed and retired Cognitive needs: Yes (cane) Hearing needs: No Vision needs: Yes (rx glasses) Physical Exam ED Exam Exam: General: Pleasant, no distress, interacting appropriately Head: Normacephalic, atraumatic ENT: oral mucosa moist, neck supple, no tracheal deviation Extremities: Patient does have a wound on the right thigh. Appears to have a small ulceration in the middle. However there is a ring-like redness around the wound. No signs of fluctuant mass. I do not think this is abscess. The appears to be indurated. Neurological: Awake and alert, no facial droop noted Skin: Warm and dry Psychiatric: Appropriate mood and thoughts Vital Signs: Vital Signs - 24 hr 04/04/25 21:24 Temperature 98.0 F Pulse Rate 88 Respiratory Rate 18 Blood Pressure 182/89 H Pulse Oximetry 98 Oxygen Delivery Method Room Air BMI result Body Mass Index 25.8 Medical Decision Making Medical Decision Making [facility] Narrative: This is a 79-year-old female presents to the ER today for evaluation of right thigh wound after removing a insect off her right thigh. This is lesion does have a ring around the ulceration. This may be secondary to a recluse spider bite. This may also be a tick bite as well. We will plan to start patient on doxycycline and Keflex. We will plan to give patient is 10 days of doxycycline to cover for possible tick bite. We will have patient follow up with her primary care doctor. Patient will be discharged. She agrees and understands this plan. Differential Diagnosis Differential Diagnoses: The differential diagnosis associated with the presentation includes erythema migraines, cellulitis Chronic Conditions Patient?s care impacted by: Hypertension Discharge Plan Discharge Clinical Impression: Cellulitis Qualifiers: Site of cellulitis: extremity Site of cellulitis of extremity: lower extremity Laterality: right Qualified Code(s): L03.115 - Cellulitis of right lower limb Insect bite Qualifiers: Encounter type: initial encounter Site of insect bite: thigh Laterality: right Qualified Code(s): S70.361A - Insect bite (nonvenomous), right thigh, initial encounter Patient Disposition: Home, Self-Care Instructions: Cellulitis (ED) Prescriptions: New cephalexin 500 mg capsule 500 mg PO Q8H 7 Days Qty: 21 0RF doxycycline hyclate 100 mg capsule 100 mg PO BID 10 Days Qty: 20 0RF No Action calcium carbonate-vitamin D3 600 mg-5 mcg (200 unit) Tablet 1 tab PO DAILY lisinopril 10 mg tablet 10 mg PO DAILY Qty: 90 1RF Print Language: Hong [place]
[2025-04-05 01:17] VITALS: BP 144/84; PULSE 79; RESP 18; TEMP 36.8; O2SAT 96
[2025-04-05 01:19] VITALS: BP 144/84; PULSE 79; RESP 18; TEMP 36.8; O2SAT 96
== END 2025-04-05 01:20 | disposition home or self-care (01) ==
PROVIDERS: Emergency Provider Student in an Organized Health Care Education/Training Program; PCP Internal Medicine
DX: L03.115 Cellulitis of right lower limb (principal); S70.361A Insect bite (nonvenomous), right thigh, initial encounter; W57.XXXA Bitten or stung by nonvenomous insect and other nonvenomous arthropods, initial encounter
CPT/HCPCS: 99283; 99284